=== PATIENT | female | born 1955 | race African-American/Black ===

== ENCOUNTER 2022-02-23 09:58 | Inpatient (IN) | payer OTHER ==
[2022-02-23] MEDS ORDERED: METOCLOPRAMIDE HCL INJECTION 10 MG/2 ML VIAL IVPUSH ONE (11:30)
[2022-02-23] MEDS ORDERED: ACETAMINOPHEN 1000 MG/100 ML BAG IVPB ONE (11:30)
[2022-02-23] MEDS ORDERED: METOCLOPRAMIDE HCL INJECTION 10 MG/2 ML VIAL ONE (12:33)
[2022-02-23] MEDS ORDERED: MAGNESIUM SULF 50% (8.12 MEQ/2 ML-1 GM VIAL) IVPB ONE (12:33)
[2022-02-23] MEDS ORDERED: ACETAMINOPHEN INJECTION 100 ML IVPB ONE (12:34)
[2022-02-23] MEDS ORDERED: MAGNESIUM SULFATE IN WATER 2 GM/50 ML IVPB IVPB ONE (13:36)
[2022-02-23 13:37] LABS: BASO % 0.2 % (0-2.0); EOS % 0.4 % (0-4.5); HEMATOCRIT 36.8 % (32.4-45.2); HEMOGLOBIN 11.6 GM/dL (10.7-15.3); LYMPH % 19.9 % (8-40); MCH 20.7 pg (25.7-33.7); MCHC 31.6 g/dl (32.0-36.0); MEAN CELL VOLUME 65.6 fl (80-96); MEAN PLT VOLUME 6.6 fl (7.5-11.1); NEUT % 74.5 % (42.8-82.8); PLATELET COUNT 512 10^3/uL (134-434); RBC 5.61 M/mm3 (3.60-5.2); WHITE BLOOD COUNT 7.5 K/mm3 (4.0-10.0)
[2022-02-23 13:59] LABS: ALBUMIN 3.2 g/dl (3.4-5.0); BLOOD UREA NITROGEN 43.1 mg/dL (7-18); CALCIUM 9.3 mg/dL (8.5-10.1)
[2022-02-23 14:02] LABS: CREATININE 2.7 mg/dL (0.55-1.3)
[2022-02-23 14:04] LABS: ANISOCYTOSIS 2+; BILIRUBIN,TOTAL 0.8 mg/dL (0.2-1); MACROCYTOSIS 0; TOT PROT 6.8 g/dl (6.4-8.2)
[2022-02-23 14:07] LABS: N-TERMINAL BNP 1037.6 pg/ml (5-125)
[2022-02-23] MEDS ORDERED: FUROSEMIDE 40 MG/4 ML INJECTABLE VIAL IVPUSH ONE (14:25)
[2022-02-23] MEDS ORDERED: FUROSEMIDE 40 MG/4 ML INJECTABLE VIAL ONE (14:50)
[2022-02-23] MEDS ORDERED: LOSARTAN POTASSIUM 25 MG TABLET PO SCH (15:45)
[2022-02-23] MEDS ORDERED: HEPARIN NA (PORCINE) 5,000 UNITS/ML 1ML VIAL ONE (22:26)
[2022-02-23] MEDS: HEPARIN NA (PORCINE) 5,000 UNITS/ML 1ML VIAL SQ SCH (23:29)
[2022-02-23] MEDS: ALLOPURINOL 100 MG TABLET (FP) PO SCH (23:29)
[2022-02-23] MEDS: MYCOPHENOLATE MOFETIL 500 MG TABLET PO SCH (23:29)
[2022-02-23] MEDS: ATORVASTATIN CA 40 MG TABLET (FP) PO SCH (23:55)
[2022-02-24] MEDS: HEPARIN NA (PORCINE) 5,000 UNITS/ML 1ML VIAL SQ SCH ×3 (06:06→22:04)
[2022-02-24 09:34] LABS: EPI CELLS 8 /uL (0-25.1); HYALINE CASTS 1 /uL (0-3.1); URINE APPEARANCE CLEAR; URINE BACTERIA 42 /uL (0-1359); URINE BILIRUBIN NEGATIVE (NEGATIVE); URINE COLOR YELLOW; URINE GLUCOSE (UA) NEGATIVE (NEGATIVE); URINE KETONE NEGATIVE (NEGATIVE); URINE LEUK ESTERASE NEGATIVE (NEGATIVE); URINE NITRITE NEGATIVE (NEGATIVE); URINE PROTEIN 4+ (NEGATIVE); URINE RBC 68 /uL (0-23.9); URINE UROBILINOGEN 0.2 mg/dL (0.2-1.0); URINE WBC 12 /uL (0-25.8)
[2022-02-24] MEDS ORDERED: FLU VACC QS2022-23(6MOS UP)/PF 60 MCG/0.5 ML SYRINGE IM ONE (10:00)
[2022-02-24] MEDS: LOSARTAN POTASSIUM 50 MG TABLET PO SCH (10:10)
[2022-02-24] MEDS: MYCOPHENOLATE MOFETIL 500 MG TABLET PO SCH ×2 (10:10→22:03)
[2022-02-24] MEDS: ALLOPURINOL 100 MG TABLET (FP) PO SCH ×2 (10:10→22:06)
[2022-02-24] MEDS: predniSONE 1 MG TABLET (FP) PO SCH (11:21)
[2022-02-24 11:42] VITALS: BMI 29.7
[2022-02-24] MEDS ORDERED: FUROSEMIDE 40 MG TABLET (FP) PO ONE (11:46)
[2022-02-24 14:43] LABS: HEMATOCRIT 39.5 % (32.4-45.2); HEMOGLOBIN 12.2 GM/dL (10.7-15.3); MCH 20.7 pg (25.7-33.7); MEAN CELL VOLUME 66.7 fl (80-96); MEAN PLT VOLUME 6.8 fl (7.5-11.1); PLATELET COUNT 559 10^3/uL (134-434); RBC 5.92 M/mm3 (3.60-5.2); RDW 18.3 % (11.6-15.6); WHITE BLOOD COUNT 6.4 K/mm3 (4.0-10.0)
[2022-02-24 15:12] LABS: ALBUMIN 3.3 g/dl (3.4-5.0); BLOOD UREA NITROGEN 45.2 mg/dL (7-18); CALCIUM 8.8 mg/dL (8.5-10.1); MAGNESIUM 3.1 mg/dL (1.8-2.4)
[2022-02-24 15:15] LABS: CREATININE 2.8 mg/dL (0.55-1.3); PHOSPHOROUS 5.2 mg/dL (2.5-4.9)
[2022-02-24 15:16] LABS: BILIRUBIN,TOTAL 0.6 mg/dL (0.2-1)
[2022-02-24] MEDS: ACETAMINOPHEN 325 MG TABLET (FP) PO PRN (20:08)
[2022-02-24] MEDS: ATORVASTATIN CA 40 MG TABLET (FP) PO SCH (22:06)
[2022-02-25] MEDS: HEPARIN NA (PORCINE) 5,000 UNITS/ML 1ML VIAL SQ SCH ×3 (06:24→22:00)
[2022-02-25 08:30] LABS: HEMATOCRIT 36.9 % (32.4-45.2); HEMOGLOBIN 11.6 GM/dL (10.7-15.3); MCH 20.7 pg (25.7-33.7); MCHC 31.3 g/dl (32.0-36.0); MEAN PLT VOLUME 6.7 fl (7.5-11.1); PLATELET COUNT 470 10^3/uL (134-434); RDW 18.3 % (11.6-15.6); WHITE BLOOD COUNT 6.4 K/mm3 (4.0-10.0)
[2022-02-25 09:40] LABS: CALCIUM 8.8 mg/dL (8.5-10.1)
[2022-02-25 09:41] LABS: ALBUMIN 2.8 g/dl (3.4-5.0); BLOOD UREA NITROGEN 47.1 mg/dL (7-18)
[2022-02-25 09:44] LABS: CREATININE 2.8 mg/dL (0.55-1.3)
[2022-02-25 09:46] LABS: BILIRUBIN,TOTAL 0.5 mg/dL (0.2-1); TOT PROT 5.9 g/dl (6.4-8.2)
[2022-02-25] MEDS: MYCOPHENOLATE MOFETIL 500 MG TABLET PO SCH ×2 (10:03→21:59)
[2022-02-25] MEDS: LOSARTAN POTASSIUM 50 MG TABLET PO SCH (10:03)
[2022-02-25] MEDS: predniSONE 1 MG TABLET (FP) PO SCH (10:03)
[2022-02-25] MEDS: ALLOPURINOL 100 MG TABLET (FP) PO SCH ×2 (10:03→22:00)
[2022-02-25] MEDS: ACETAMINOPHEN 325 MG TABLET (FP) PO PRN ×2 (10:41→22:05)
[2022-02-25] MEDS ORDERED: amLODIPine BESYLATE 5 MG TABLET (FP) PO ONE ×2 (12:34→13:36)
[2022-02-25] MEDS: SODIUM ZIRCONIUM CYCLOSILICATE (LOKELMA) 5 GM PACKET PO SCH (14:05)
[2022-02-25] MEDS ORDERED: LOSARTAN POTASSIUM 50 MG TABLET PO ONE (17:12)
[2022-02-25] MEDS: ATORVASTATIN CA 40 MG TABLET (FP) PO SCH (22:07)
[2022-02-26] MEDS: HEPARIN NA (PORCINE) 5,000 UNITS/ML 1ML VIAL SQ SCH ×3 (06:39→21:14)
[2022-02-26 07:34] LABS: HEMATOCRIT 34.5 % (32.4-45.2); HEMOGLOBIN 10.8 GM/dL (10.7-15.3); MCH 20.7 pg (25.7-33.7); MCHC 31.4 g/dl (32.0-36.0); MEAN PLT VOLUME 7.1 fl (7.5-11.1); PLATELET COUNT 483 10^3/uL (134-434); RBC 5.22 M/mm3 (3.60-5.2); RDW 17.9 % (11.6-15.6); WHITE BLOOD COUNT 6.1 K/mm3 (4.0-10.0)
[2022-02-26 08:10] LABS: ALBUMIN 2.6 g/dl (3.4-5.0); BLOOD UREA NITROGEN 46.3 mg/dL (7-18); CALCIUM 8.1 mg/dL (8.5-10.1)
[2022-02-26 08:13] LABS: CREATININE 2.9 mg/dL (0.55-1.3)
[2022-02-26 08:15] LABS: BILIRUBIN,TOTAL 0.4 mg/dL (0.2-1); TOT PROT 5.4 g/dl (6.4-8.2)
[2022-02-26] MEDS: ALLOPURINOL 100 MG TABLET (FP) PO SCH ×2 (09:36→21:15)
[2022-02-26] MEDS: LOSARTAN POTASSIUM 50 MG TABLET PO SCH (09:36)
[2022-02-26] MEDS: amLODIPine BESYLATE 10 MG TABLET (FP) PO SCH (09:36)
[2022-02-26] MEDS: SODIUM ZIRCONIUM CYCLOSILICATE (LOKELMA) 5 GM PACKET PO SCH (09:36)
[2022-02-26] MEDS: predniSONE 1 MG TABLET (FP) PO SCH (09:37)
[2022-02-26] MEDS: MYCOPHENOLATE MOFETIL 500 MG TABLET PO SCH ×2 (09:37→17:48)
[2022-02-26] MEDS: ACETAMINOPHEN 325 MG TABLET (FP) PO PRN (16:39)
[2022-02-26] MEDS: ATORVASTATIN CA 40 MG TABLET (FP) PO SCH (21:16)
[2022-02-26] MEDS: methylPREDNISolone NA SUCC 1000 MG/8 ML VIAL IVPB SCH (21:50)
[2022-02-26] MEDS ORDERED: SODIUM ZIRCONIUM CYCLOSILICATE (LOKELMA) 5 GM PACKET PO ONE (22:00)
[2022-02-27] MEDS: HEPARIN NA (PORCINE) 5,000 UNITS/ML 1ML VIAL SQ SCH ×3 (06:23→22:09)
[2022-02-27] MEDS: MYCOPHENOLATE MOFETIL 500 MG TABLET PO SCH ×2 (06:25→16:48)
[2022-02-27] MEDS: ACETAMINOPHEN 325 MG TABLET (FP) PO PRN (06:25)
[2022-02-27 08:28] LABS: HEMATOCRIT 37.9 % (32.4-45.2); MCH 20.6 pg (25.7-33.7); MCHC 31.6 g/dl (32.0-36.0); MEAN CELL VOLUME 65.3 fl (80-96); MEAN PLT VOLUME 6.8 fl (7.5-11.1); PLATELET COUNT 504 10^3/uL (134-434); RBC 5.81 M/mm3 (3.60-5.2); RDW 18.1 % (11.6-15.6); WHITE BLOOD COUNT 5.1 K/mm3 (4.0-10.0)
[2022-02-27 08:52] LABS: ALBUMIN 2.8 g/dl (3.4-5.0); BLOOD UREA NITROGEN 48.5 mg/dL (7-18); CALCIUM 8.7 mg/dL (8.5-10.1)
[2022-02-27 08:57] LABS: BILIRUBIN,TOTAL 0.6 mg/dL (0.2-1); TOT PROT 6.4 g/dl (6.4-8.2)
[2022-02-27] MEDS: SODIUM ZIRCONIUM CYCLOSILICATE (LOKELMA) 5 GM PACKET PO SCH (09:42)
[2022-02-27] MEDS: ALLOPURINOL 100 MG TABLET (FP) PO SCH ×2 (09:42→22:08)
[2022-02-27] MEDS: amLODIPine BESYLATE 10 MG TABLET (FP) PO SCH (09:42)
[2022-02-27] MEDS: LOSARTAN POTASSIUM 50 MG TABLET PO SCH (09:42)
[2022-02-27] MEDS: methylPREDNISolone NA SUCC 1000 MG/8 ML VIAL IVPB SCH (18:05)
[2022-02-27] MEDS: CARVEDILOL 6.25 MG TABLET (FP) PO SCH ×2 (18:24→22:08)
[2022-02-27] MEDS: ATORVASTATIN CA 40 MG TABLET (FP) PO SCH (22:10)
[2022-02-28] MEDS: MYCOPHENOLATE MOFETIL 500 MG TABLET PO SCH ×2 (06:49→17:07)
[2022-02-28 08:09] LABS: HEMATOCRIT 36.1 % (32.4-45.2); HEMOGLOBIN 11.4 GM/dL (10.7-15.3); MCH 20.4 pg (25.7-33.7); MCHC 31.5 g/dl (32.0-36.0); MEAN CELL VOLUME 64.9 fl (80-96); MEAN PLT VOLUME 6.8 fl (7.5-11.1); PLATELET COUNT 541 10^3/uL (134-434); RBC 5.56 M/mm3 (3.60-5.2); RDW 18.1 % (11.6-15.6); WHITE BLOOD COUNT 8.6 K/mm3 (4.0-10.0)
[2022-02-28 08:27] LABS: CALCIUM 8.8 mg/dL (8.5-10.1)
[2022-02-28 08:28] LABS: BLOOD UREA NITROGEN 68.8 mg/dL (7-18)
[2022-02-28 08:31] LABS: CREATININE 3.9 mg/dL (0.55-1.3)
[2022-02-28 08:33] LABS: BILIRUBIN,TOTAL 0.4 mg/dL (0.2-1); TOT PROT 6.3 g/dl (6.4-8.2)
[2022-02-28] MEDS: SODIUM ZIRCONIUM CYCLOSILICATE (LOKELMA) 5 GM PACKET PO SCH (09:46)
[2022-02-28] MEDS: ALLOPURINOL 100 MG TABLET (FP) PO SCH ×2 (09:46→21:35)
[2022-02-28] MEDS: amLODIPine BESYLATE 10 MG TABLET (FP) PO SCH (09:46)
[2022-02-28] MEDS: CARVEDILOL 6.25 MG TABLET (FP) PO SCH ×2 (09:46→21:35)
[2022-02-28] MEDS: LOSARTAN POTASSIUM 50 MG TABLET PO SCH (09:46)
[2022-02-28] MEDS: methylPREDNISolone NA SUCC 1000 MG/8 ML VIAL IVPB SCH (17:04)
[2022-02-28 18:57] LABS: CALCIUM 8.9 mg/dL (8.5-10.1)
[2022-02-28 18:58] LABS: BLOOD UREA NITROGEN 73.2 mg/dL (7-18)
[2022-02-28 19:01] LABS: CREATININE 4.1 mg/dL (0.55-1.3)
[2022-02-28] MEDS: ATORVASTATIN CA 40 MG TABLET (FP) PO SCH (21:35)
[2022-03-01] MEDS: MYCOPHENOLATE MOFETIL 500 MG TABLET PO SCH ×2 (06:07→17:39)
[2022-03-01 06:30] LABS: EPI CELLS 18 /uL (0-25.1); HYALINE CASTS 3 /uL (0-3.1); URINE APPEARANCE CLEAR; URINE BACTERIA 18 /uL (0-1359); URINE BILIRUBIN NEGATIVE (NEGATIVE); URINE COLOR YELLOW; URINE GLUCOSE (UA) NEGATIVE (NEGATIVE); URINE KETONE NEGATIVE (NEGATIVE); URINE LEUK ESTERASE NEGATIVE (NEGATIVE); URINE NITRITE NEGATIVE (NEGATIVE); URINE PROTEIN 4+ (NEGATIVE); URINE RBC 20 /uL (0-23.9); URINE UROBILINOGEN 0.2 mg/dL (0.2-1.0); URINE WBC 30 /uL (0-25.8)
[2022-03-01 08:25] LABS: HEMATOCRIT 36.1 % (32.4-45.2); HEMOGLOBIN 11.2 GM/dL (10.7-15.3); MCH 20.4 pg (25.7-33.7); MEAN CELL VOLUME 65.7 fl (80-96); PLATELET COUNT 572 10^3/uL (134-434); RBC 5.49 M/mm3 (3.60-5.2); RDW 18.3 % (11.6-15.6); WHITE BLOOD COUNT 9.4 K/mm3 (4.0-10.0)
[2022-03-01 08:28] LABS: INR 0.93 (0.83-1.09); PROTHROMBIN TIME (PATIENT) 10.7 SEC (9.7-13.0)
[2022-03-01 08:46] LABS: CALCIUM 8.8 mg/dL (8.5-10.1)
[2022-03-01 08:47] LABS: BLOOD UREA NITROGEN 82.8 mg/dL (7-18)
[2022-03-01 08:50] LABS: CREATININE 4.2 mg/dL (0.55-1.3)
[2022-03-01 08:52] LABS: BILIRUBIN,TOTAL 0.6 mg/dL (0.2-1); TOT PROT 6.4 g/dl (6.4-8.2)
[2022-03-01] MEDS: SODIUM ZIRCONIUM CYCLOSILICATE (LOKELMA) 5 GM PACKET PO SCH (10:00)
[2022-03-01] MEDS: amLODIPine BESYLATE 10 MG TABLET (FP) PO SCH (10:47)
[2022-03-01] MEDS: CARVEDILOL 6.25 MG TABLET (FP) PO SCH ×2 (10:47→21:51)
[2022-03-01] MEDS: ALLOPURINOL 100 MG TABLET (FP) PO SCH ×2 (10:47→21:51)
[2022-03-01] MEDS ORDERED: MIDAZOLAM HCL 2 MG/2 ML SINGLE DOSE VIAL ONE (13:25)
[2022-03-01] MEDS ORDERED: MIDAZOLAM HCL 2 MG/2 ML SINGLE DOSE VIAL IVPUSH ONE (13:50)
[2022-03-01] MEDS ORDERED: SODIUM CHLORIDE 500 ML IV SCH (14:45)
[2022-03-01] MEDS: ACETAMINOPHEN 325 MG TABLET (FP) PO PRN (17:39)
[2022-03-01] MEDS: ATORVASTATIN CA 40 MG TABLET (FP) PO SCH (21:51)
[2022-03-02] MEDS: MYCOPHENOLATE MOFETIL 500 MG TABLET PO SCH ×2 (06:05→18:17)
[2022-03-02] MEDS: CARVEDILOL 6.25 MG TABLET (FP) PO SCH ×2 (10:05→22:07)
[2022-03-02] MEDS: SODIUM ZIRCONIUM CYCLOSILICATE (LOKELMA) 5 GM PACKET PO SCH (10:06)
[2022-03-02] MEDS: ALLOPURINOL 100 MG TABLET (FP) PO SCH ×2 (10:06→22:08)
[2022-03-02] MEDS: amLODIPine BESYLATE 10 MG TABLET (FP) PO SCH (10:06)
[2022-03-02] MEDS: predniSONE 20 MG TABLET (UD) PO SCH (15:04)
[2022-03-02] MEDS: HEPARIN NA (PORCINE) 5,000 UNITS/ML 1ML VIAL SQ SCH ×2 (15:04→22:08)
[2022-03-02 15:10] LABS: ATYPICAL pANCA <1:20 titer (Neg:<1:20); C-ANCA <1:20 titer (Neg:<1:20)
[2022-03-02 16:21] LABS: HEMATOCRIT 34.3 % (32.4-45.2); HEMOGLOBIN 10.6 GM/dL (10.7-15.3); MCH 20.1 pg (25.7-33.7); MCHC 30.9 g/dl (32.0-36.0); MEAN CELL VOLUME 64.9 fl (80-96); MEAN PLT VOLUME 6.9 fl (7.5-11.1); PLATELET COUNT 594 10^3/uL (134-434); RBC 5.29 M/mm3 (3.60-5.2); RDW 18.2 % (11.6-15.6); WHITE BLOOD COUNT 9.9 K/mm3 (4.0-10.0)
[2022-03-02 16:32] LABS: ALBUMIN 2.5 g/dl (3.4-5.0); BLOOD UREA NITROGEN 96.3 mg/dL (7-18)
[2022-03-02 16:35] LABS: CREATININE 4.1 mg/dL (0.55-1.3)
[2022-03-02 16:37] LABS: BILIRUBIN,TOTAL 0.3 mg/dL (0.2-1); TOT PROT 5.4 g/dl (6.4-8.2)
[2022-03-02] MEDS: ATORVASTATIN CA 40 MG TABLET (FP) PO SCH (22:08)
[2022-03-03] MEDS: HEPARIN NA (PORCINE) 5,000 UNITS/ML 1ML VIAL SQ SCH ×3 (06:09→21:35)
[2022-03-03] MEDS: MYCOPHENOLATE MOFETIL 500 MG TABLET PO SCH ×2 (07:29→18:01)
[2022-03-03 07:42] LABS: HEMATOCRIT 34.7 % (32.4-45.2); HEMOGLOBIN 11.1 GM/dL (10.7-15.3); MCH 20.7 pg (25.7-33.7); MEAN CELL VOLUME 64.5 fl (80-96); MEAN PLT VOLUME 6.9 fl (7.5-11.1); PLATELET COUNT 587 10^3/uL (134-434); RBC 5.37 M/mm3 (3.60-5.2); RDW 18.3 % (11.6-15.6); WHITE BLOOD COUNT 8.7 K/mm3 (4.0-10.0)
[2022-03-03 08:10] LABS: CALCIUM 8.6 mg/dL (8.5-10.1)
[2022-03-03 08:11] LABS: ALBUMIN 2.5 g/dl (3.4-5.0); BLOOD UREA NITROGEN 101.4 mg/dL (7-18)
[2022-03-03 08:14] LABS: CREATININE 3.9 mg/dL (0.55-1.3)
[2022-03-03 08:15] LABS: BILIRUBIN,TOTAL 0.6 mg/dL (0.2-1); TOT PROT 5.5 g/dl (6.4-8.2)
[2022-03-03] MEDS: amLODIPine BESYLATE 10 MG TABLET (FP) PO SCH (09:56)
[2022-03-03] MEDS: SODIUM ZIRCONIUM CYCLOSILICATE (LOKELMA) 5 GM PACKET PO SCH (09:56)
[2022-03-03] MEDS: ALLOPURINOL 100 MG TABLET (FP) PO SCH ×2 (09:56→21:36)
[2022-03-03] MEDS: CARVEDILOL 6.25 MG TABLET (FP) PO SCH ×2 (09:56→21:37)
[2022-03-03] MEDS: predniSONE 20 MG TABLET (UD) PO SCH (09:56)
[2022-03-03] MEDS: ATORVASTATIN CA 40 MG TABLET (FP) PO SCH (21:37)
[2022-03-04] MEDS: HEPARIN NA (PORCINE) 5,000 UNITS/ML 1ML VIAL SQ SCH ×3 (05:48→21:49)
[2022-03-04] MEDS: MYCOPHENOLATE MOFETIL 500 MG TABLET PO SCH ×2 (06:11→17:38)
[2022-03-04 08:11] LABS: HEMATOCRIT 36.1 % (32.4-45.2); HEMOGLOBIN 11.2 GM/dL (10.7-15.3); MEAN CELL VOLUME 64.6 fl (80-96); MEAN PLT VOLUME 6.8 fl (7.5-11.1); PLATELET COUNT 586 10^3/uL (134-434); RBC 5.58 M/mm3 (3.60-5.2); RDW 18.2 % (11.6-15.6); WHITE BLOOD COUNT 10.1 K/mm3 (4.0-10.0)
[2022-03-04 09:49] LABS: CHLORIDE 111 mmol/L (98-107); SODIUM 143 mmol/L (136-145)
[2022-03-04 10:03] LABS: ALBUMIN 2.5 g/dl (3.4-5.0); ANION GAP 13 MMOL/L (8-16); CALCIUM 8.3 mg/dL (8.5-10.1); CO2 19 mmol/L (21-32); GLUCOSE,RANDOM 88 mg/dL (74-106); MAGNESIUM 2.2 mg/dL (1.8-2.4)
[2022-03-04 10:05] LABS: PHOSPHOROUS 6.4 mg/dL (2.5-4.9); SGPT/ALT 86 U/L (13-61)
[2022-03-04 10:06] LABS: CREATININE 3.7 mg/dL (0.55-1.3)
[2022-03-04 10:07] LABS: BILIRUBIN,TOTAL 0.5 mg/dL (0.2-1); SGOT/AST 50 U/L (15-37); TOT PROT 5.2 g/dl (6.4-8.2)
[2022-03-04 10:08] LABS: ALK PHOS 114 U/L (45-117)
[2022-03-04 10:09] LABS: BLOOD UREA NITROGEN 104.5 mg/dL (7-18)
[2022-03-04] MEDS: SODIUM ZIRCONIUM CYCLOSILICATE (LOKELMA) 5 GM PACKET PO SCH (10:39)
[2022-03-04] MEDS: amLODIPine BESYLATE 10 MG TABLET (FP) PO SCH (10:40)
[2022-03-04] MEDS: ALLOPURINOL 100 MG TABLET (FP) PO SCH ×2 (10:40→21:49)
[2022-03-04] MEDS: CARVEDILOL 6.25 MG TABLET (FP) PO SCH ×2 (10:40→21:50)
[2022-03-04] MEDS: predniSONE 20 MG TABLET (UD) PO SCH (10:40)
[2022-03-04] MEDS ORDERED: POLYETHYLENE GLYCOL (HEALTHYLAX) 3350 17 GM PACKET PO ONE (15:30)
[2022-03-04] MEDS: ATORVASTATIN CA 40 MG TABLET (FP) PO SCH (21:49)
[2022-03-05] MEDS: HEPARIN NA (PORCINE) 5,000 UNITS/ML 1ML VIAL SQ SCH (06:34)
[2022-03-05] MEDS: MYCOPHENOLATE MOFETIL 500 MG TABLET PO SCH (06:34)
[2022-03-05 07:45] LABS: HEMATOCRIT 34.7 % (32.4-45.2); HEMOGLOBIN 10.8 GM/dL (10.7-15.3); MEAN CELL VOLUME 64.5 fl (80-96); MEAN PLT VOLUME 7.3 fl (7.5-11.1); PLATELET COUNT 658 10^3/uL (134-434); RBC 5.38 M/mm3 (3.60-5.2); RDW 18.2 % (11.6-15.6); WHITE BLOOD COUNT 11.8 K/mm3 (4.0-10.0)
[2022-03-05 08:29] LABS: ALBUMIN 2.3 g/dl (3.4-5.0); BLOOD UREA NITROGEN 99.4 mg/dL (7-18); CREATININE 3.4 mg/dL (0.55-1.3)
[2022-03-05 08:30] LABS: CALCIUM 8.3 mg/dL (8.5-10.1)
[2022-03-05 08:31] LABS: BILIRUBIN,TOTAL 0.4 mg/dL (0.2-1)
[2022-03-05] MEDS ORDERED: predniSONE 10 MG TABLET (UD) PO SCH (10:00)
[2022-03-05] MEDS: SODIUM ZIRCONIUM CYCLOSILICATE (LOKELMA) 5 GM PACKET PO SCH (10:15)
[2022-03-05] MEDS: CARVEDILOL 6.25 MG TABLET (FP) PO SCH (10:15)
[2022-03-05] MEDS: amLODIPine BESYLATE 10 MG TABLET (FP) PO SCH (10:16)
[2022-03-05] MEDS: ALLOPURINOL 100 MG TABLET (FP) PO SCH (10:16)
[2022-03-05] MEDS ORDERED: ACETAMINOPHEN 325 MG TABLET (FP) PO PRN (12:11)
[2022-03-05] MEDS ORDERED: LOSARTAN POTASSIUM 25 MG TABLET PO SCH (13:15)
[2022-03-05] MEDS ORDERED: HEPARIN NA (PORCINE) 5,000 UNITS/ML 1ML VIAL SQ SCH (14:00)
[2022-03-05 14:10] VITALS: BP 135/79; PULSE 75; RESP 18; TEMP 97.3
[2022-03-05] MEDS ORDERED: MYCOPHENOLATE MOFETIL 500 MG TABLET PO SCH (17:00)
[2022-03-05] MEDS ORDERED: CARVEDILOL 6.25 MG TABLET (FP) PO SCH (22:00)
[2022-03-05] MEDS ORDERED: ATORVASTATIN CA 40 MG TABLET (FP) PO SCH (22:00)
[2022-03-05] MEDS ORDERED: ALLOPURINOL 100 MG TABLET (FP) PO SCH (22:00)
[2022-03-06] MEDS ORDERED: SODIUM ZIRCONIUM CYCLOSILICATE (LOKELMA) 5 GM PACKET PO SCH (10:00)
[2022-03-06] MEDS ORDERED: amLODIPine BESYLATE 10 MG TABLET (FP) PO SCH ×2 (10:00)
[2022-03-06] MEDS ORDERED: predniSONE 20 MG TABLET (UD) PO SCH ×2 (10:00)
== END 2022-03-05 17:36 | disposition home or self-care (01) | DRG 699 ==
LOC: JER 09:58 → UNDOADMIN 14:25 → INTOOBSV 14:25 → JERBED 14:25 → J4W 02-24 00:10 → OBSVTOIN 03-01 10:19 → J5S 03-05 11:35
PROVIDERS: ADMIT Internal Medicine; ATTEND Internal Medicine
PROC: 0TB03ZX Excision of Right Kidney, Percutaneous Approach, Diagnostic (ICD-10-PCS; principal; 2022-02-26)
DX: N04.1 Nephrotic syndrome with focal and segmental glomerular lesions (principal); I42.8 Other cardiomyopathies; N17.9 Acute kidney failure, unspecified; M32.9 Systemic lupus erythematosus, unspecified; E78.5 Hyperlipidemia, unspecified; R31.29 Other microscopic hematuria; E87.5 Hyperkalemia; R74.01 Elevation of levels of liver transaminase levels; N28.1 Cyst of kidney, acquired; E66.9 Obesity, unspecified; Z68.30 Body mass index [BMI] 30.0-30.9, adult; R80.9 Proteinuria, unspecified; R51.9 Headache, unspecified; I10 Essential (primary) hypertension; E11.22 Type 2 diabetes mellitus with diabetic chronic kidney disease
CPT/HCPCS: 36415; 50200; 71046-TC-FY; 76775-TC; 80048; 80053; 80061; 81003; 82570; 82607; 82728; 82746; 82962; 83036; 83520; 83540; 83550; 83735; 83880; 84100; 84155; 84156; 84165; 84439; 84443; 84484; 85025; 85027; 85610; 86038; 86160; 86256; 87077; 87086; 88300-TC; 88329; 93005; 93010; 93306-TC; 99285-25; C9803-CS; G0378; J1644; J7517; U0003; U0005

== ENCOUNTER 2022-03-20 09:31 | Emergency (ER) | payer OTHER ==
[2022-03-20 09:45] VITALS: BP 158/87; PULSE 66; RESP 17; TEMP 98; BMI 27.6
[2022-03-20 12:19] LABS: BASO % 0.2 % (0-2.0); HEMOGLOBIN 10.8 GM/dL (10.7-15.3); LYMPH % 9.8 % (8-40); MCHC 30.1 g/dl (32.0-36.0); MEAN CELL VOLUME 66.7 fl (80-96); MEAN PLT VOLUME 7.9 fl (7.5-11.1); MONO % 4.5 % (3.8-10.2); NEUT % 85.5 % (42.8-82.8); PLATELET COUNT 233 10^3/uL (134-434); RDW 20.1 % (11.6-15.6); WHITE BLOOD COUNT 11.5 K/mm3 (4.0-10.0)
[2022-03-20 12:21] LABS: EPI CELLS 31 /uL (0-25.1); HYALINE CASTS 1 /uL (0-3.1); PH,URINE 6.5 (5.0-8.0); URINE APPEARANCE CLEAR; URINE BACTERIA 99 /uL (0-1359); URINE BILIRUBIN NEGATIVE (NEGATIVE); URINE COLOR YELLOW; URINE GLUCOSE (UA) NEGATIVE (NEGATIVE); URINE KETONE NEGATIVE (NEGATIVE); URINE LEUK ESTERASE 1+ (NEGATIVE); URINE NITRITE NEGATIVE (NEGATIVE); URINE PROTEIN 3+ (NEGATIVE); URINE RBC 62 /uL (0-23.9); URINE UROBILINOGEN 0.2 mg/dL (0.2-1.0); URINE WBC 274 /uL (0-25.8)
[2022-03-20 12:25] LABS: ALBUMIN 2.9 g/dl (3.4-5.0); BLOOD UREA NITROGEN 50.5 mg/dL (7-18)
[2022-03-20 12:29] LABS: CREATININE 2.4 mg/dL (0.55-1.3)
[2022-03-20 12:31] LABS: BILIRUBIN,TOTAL 1.1 mg/dL (0.2-1); TOT PROT 5.6 g/dl (6.4-8.2)
[2022-03-20] MEDS ORDERED: SODIUM CHLORIDE 1,000 ML IV STA (13:05)
== END 2022-03-20 16:07 | disposition home or self-care (01) ==
LOC: JER 09:31
DX: N30.01 Acute cystitis with hematuria (principal)
CPT/HCPCS: 36415; 76775-TC; 80053; 81003; 85025; 87086; 87186; 99284-25; C9803-CS; U0003; U0005

== ENCOUNTER 2022-05-14 16:29 | Inpatient (IN) | payer OTHER ==
[2022-05-14] MEDS ORDERED: ACETAMINOPHEN 1000 MG/100 ML BAG IVPB ONE (20:14)
[2022-05-14] MEDS ORDERED: ACETAMINOPHEN INJECTION 100 ML IVPB ONE (21:21)
[2022-05-14 21:54] LABS: HEMATOCRIT 38.8 % (32.4-45.2); HEMOGLOBIN 10.9 GM/dL (10.7-15.3); MCH 21.9 pg (25.7-33.7); MCHC 28.1 g/dl (32.0-36.0); MEAN CELL VOLUME 78.1 fl (80-96); MEAN PLT VOLUME 8.9 fl (7.5-11.1); PLATELET COUNT 252 10^3/uL (134-434); RBC 4.97 M/mm3 (3.60-5.2); RDW 19.9 % (11.6-15.6); WHITE BLOOD COUNT 6.4 K/mm3 (4.0-10.0)
[2022-05-14 22:01] LABS: INR 0.88 (0.83-1.09); PROTHROMBIN TIME (PATIENT) 10.1 SEC (9.7-13.0)
[2022-05-14 22:04] LABS: ACTIVATED PTT 19.7 SECONDS (25.2-36.5)
[2022-05-14 22:09] LABS: CHLORIDE 92 mmol/L (98-107); SODIUM 131 mmol/L (136-145)
[2022-05-14 22:11] LABS: CALCIUM 8.4 mg/dL (8.5-10.1)
[2022-05-14 22:13] LABS: ALBUMIN 2.8 g/dl (3.4-5.0); ANION GAP 16 MMOL/L (8-16); BLOOD UREA NITROGEN 57.4 mg/dL (7-18); CO2 23 mmol/L (21-32); MAGNESIUM 2.2 mg/dL (1.8-2.4)
[2022-05-14 22:16] LABS: CREATININE 3.3 mg/dL (0.55-1.3); PHOSPHOROUS 3.4 mg/dL (2.5-4.9); SGOT/AST 51 U/L (15-37); TOT PROT 5.9 g/dl (6.4-8.2)
[2022-05-14 22:17] LABS: ALK PHOS 233 U/L (45-117); N-TERMINAL BNP 380.3 pg/ml (5-125)
[2022-05-14] MEDS ORDERED: SODIUM CHLORIDE 0.9% 500 ML INFUS.BAG IV ONE (22:18)
[2022-05-14 22:23] LABS: SGPT/ALT 78 U/L (13-61)
[2022-05-14 22:28] LABS: GLUCOSE,RANDOM 1151 mg/dL (74-106)
[2022-05-14 22:44] LABS: ANISOCYTOSIS 2+; MACROCYTOSIS 0; OVALOCYTE 1+; TEAR DROP CELLS 1+
[2022-05-14 23:01] LABS: EPI CELLS 3 /uL (0-25.1); HYALINE CASTS 0 /uL (0-3.1); URINE APPEARANCE CLEAR; URINE BACTERIA 6 /uL (0-1359); URINE BILIRUBIN NEGATIVE (NEGATIVE); URINE COLOR YELLOW; URINE GLUCOSE (UA) 3+ (NEGATIVE); URINE KETONE NEGATIVE (NEGATIVE); URINE LEUK ESTERASE NEGATIVE (NEGATIVE); URINE NITRITE NEGATIVE (NEGATIVE); URINE PROTEIN 2+ (NEGATIVE); URINE RBC 17 /uL (0-23.9); URINE UROBILINOGEN 0.2 mg/dL (0.2-1.0); URINE WBC 5 /uL (0-25.8)
[2022-05-14] MEDS ORDERED: INSULIN REGULAR HUMAN 100 UNITS/ML *VIAL* (FOR IVP) IVPUSH ONE (23:19)
[2022-05-14] MEDS ORDERED: LACTATED RINGERS SOLUTION 1,000 ML IV STA (23:19)
[2022-05-14] MEDS ORDERED: DEXTROSE 50%-WATER - 25 GM/50 ML VIAL IVPUSH PRN (23:19)
[2022-05-14] MEDS ORDERED: INSULIN REGULAR 100 UNITS in SODIUM CHLORIDE 99 ML IVPB SCH (23:30)
[2022-05-15 00:54] LABS: VENOUS BASE EXCESS -2.3 mmol/L (-2-2); VENOUS PH 7.351 (7.310-7.410)
[2022-05-15 00:58] LABS: LACTIC ACID 2.6 mmol/L (0.4-2.0)
[2022-05-15] MEDS ORDERED: LACTATED RINGERS SOLUTION 1,000 ML IV STA (01:18)
[2022-05-15] MEDS ORDERED: DEXTROSE 50%-WATER - 25 GM/50 ML VIAL IVPUSH PRN (03:21)
[2022-05-15] MEDS ORDERED: ONDANSETRON 4 MG/2 ML VIAL IVPUSH PRN (03:21)
[2022-05-15] MEDS ORDERED: INSULIN REGULAR HUMAN 100 UNITS/ML *VIAL* (FOR IVP) IVPUSH ONE (03:21)
[2022-05-15] MEDS ORDERED: INSULIN REGULAR 100 UNITS in SODIUM CHLORIDE 99 ML IVPB SCH (03:30)
[2022-05-15] MEDS ORDERED: ACETAMINOPHEN 325 MG TABLET (FP) PO PRN (03:30)
[2022-05-15] MEDS ORDERED: SODIUM CHLORIDE 0.45% 1,000 ML IV SCH (04:00)
[2022-05-15] MEDS ORDERED: PNEUMOC 20-VAL CONJ-DIP CRM/PF 0.5 ML SYRINGE IM ONE (04:22)
[2022-05-15] MEDS ORDERED: DEXTROSE 5%-0.45% SALINE 1,000 ML IV SCH (05:00)
[2022-05-15] MEDS: HEPARIN NA (PORCINE) 5,000 UNITS/ML 1ML VIAL SQ SCH ×3 (06:11→21:24)
[2022-05-15 06:45] LABS: CALCIUM 8.7 mg/dL (8.5-10.1); MAGNESIUM 1.8 mg/dL (1.8-2.4)
[2022-05-15 06:46] LABS: BLOOD UREA NITROGEN 49.2 mg/dL (7-18)
[2022-05-15 06:50] LABS: CREATININE 2.3 mg/dL (0.55-1.3); PHOSPHOROUS 2.4 mg/dL (2.5-4.9)
[2022-05-15 07:55] LABS: HEMATOCRIT 33.4 % (32.4-45.2); HEMOGLOBIN 10.5 GM/dL (10.7-15.3); MCH 22.2 pg (25.7-33.7); MCHC 31.5 g/dl (32.0-36.0); MEAN PLT VOLUME 7.9 fl (7.5-11.1); PLATELET COUNT 210 10^3/uL (134-434); RBC 4.75 M/mm3 (3.60-5.2); RDW 20.3 % (11.6-15.6); WHITE BLOOD COUNT 6.1 K/mm3 (4.0-10.0)
[2022-05-15 07:57] LABS: MEAN CELL VOLUME 70.4 fl (80-96)
[2022-05-15] MEDS ORDERED: CARVEDILOL 6.25 MG TABLET (FP) PO SCH (10:00)
[2022-05-15] MEDS ORDERED: predniSONE 1 MG TABLET (FP) PO SCH (10:00)
[2022-05-15 10:07] LABS: ANISOCYTOSIS 2+; MACROCYTOSIS 0; OVALOCYTE 1+; TEAR DROP CELLS 1+
[2022-05-15] MEDS: POLYETHYLENE GLYCOL (HEALTHYLAX) 3350 17 GM PACKET PO SCH ×2 (11:32→21:25)
[2022-05-15] MEDS: MUPIROCIN 2% TOPICAL OINTMENT FOR DECOLONIZATION NS SCH ×2 (11:32→21:24)
[2022-05-15] MEDS: PANTOPRAZOLE 40 MG TABLET PO SCH (11:32)
[2022-05-15] MEDS: ALLOPURINOL 100 MG TABLET (FP) PO SCH ×2 (11:33→21:23)
[2022-05-15] MEDS ORDERED: predniSONE 20 MG TABLET (UD) PO STA (16:32)
[2022-05-15] MEDS ORDERED: LOSARTAN POTASSIUM 25 MG TABLET PO ONE (16:36)
[2022-05-15] MEDS ORDERED: LACTATED RINGERS SOLUTION 1000 ML INFUS.BAG IV STA (16:38)
[2022-05-15 17:58] LABS: CALCIUM 8.6 mg/dL (8.5-10.1)
[2022-05-15 18:00] LABS: BLOOD UREA NITROGEN 36.4 mg/dL (7-18); MAGNESIUM 1.8 mg/dL (1.8-2.4)
[2022-05-15 18:02] LABS: CREATININE 1.8 mg/dL (0.55-1.3); PHOSPHOROUS 2.2 mg/dL (2.5-4.9)
[2022-05-15] MEDS: ATORVASTATIN CA 40 MG TABLET (FP) PO SCH (21:23)
[2022-05-15] MEDS: CARVEDILOL 25 MG TABLET (FP) PO SCH (21:23)
[2022-05-15] MEDS: CHLORHEXIDINE GLUCONATE 4% CLEANSER FOR DECOLONIZATION TP SCH (21:25)
[2022-05-15] MEDS: INSULIN (LEVEMIR) 100 UNITS/ML UNITS SQ SCH (21:26)
[2022-05-15] MEDS: INSULIN (NOVOLOG) ASPART 100 UNITS/ML 10ML VIAL SQ SCH ×2 (21:26→22:51)
[2022-05-16] MEDS: HEPARIN NA (PORCINE) 5,000 UNITS/ML 1ML VIAL SQ SCH ×3 (05:43→21:19)
[2022-05-16] MEDS: INSULIN (NOVOLOG) ASPART 100 UNITS/ML 10ML VIAL SQ SCH ×4 (06:34→21:18)
[2022-05-16 08:29] LABS: BLOOD UREA NITROGEN 34.6 mg/dL (7-18); CALCIUM 8.1 mg/dL (8.5-10.1); MAGNESIUM 1.7 mg/dL (1.8-2.4)
[2022-05-16 08:31] LABS: PHOSPHOROUS 2.8 mg/dL (2.5-4.9)
[2022-05-16 08:33] LABS: BILIRUBIN,TOTAL 0.6 mg/dL (0.2-1); TOT PROT 4.6 g/dl (6.4-8.2)
[2022-05-16] MEDS: ALLOPURINOL 100 MG TABLET (FP) PO SCH ×2 (09:40→21:20)
[2022-05-16] MEDS: MUPIROCIN 2% TOPICAL OINTMENT FOR DECOLONIZATION NS SCH ×2 (09:40→21:19)
[2022-05-16] MEDS: POLYETHYLENE GLYCOL (HEALTHYLAX) 3350 17 GM PACKET PO SCH ×2 (09:40→21:19)
[2022-05-16] MEDS: CALCIUM 500MG/VIT-D 200 UNITS COMBO TABLET (FP) PO SCH (09:40)
[2022-05-16] MEDS: PANTOPRAZOLE 40 MG TABLET PO SCH (09:40)
[2022-05-16] MEDS: SODIUM ZIRCONIUM CYCLOSILICATE (LOKELMA) 5 GM PACKET PO SCH (09:40)
[2022-05-16] MEDS: CARVEDILOL 25 MG TABLET (FP) PO SCH ×2 (09:40→21:19)
[2022-05-16] MEDS ORDERED: NIFEdipine E.R. 30 MG TABLET PO SCH (10:00)
[2022-05-16] MEDS ORDERED: predniSONE 20 MG TABLET (UD) PO SCH (10:00)
[2022-05-16 11:41] LABS: ALBUMIN 2.2 g/dl (3.4-5.0)
[2022-05-16] MEDS: LOSARTAN POTASSIUM 50 MG TABLET PO SCH (16:55)
[2022-05-16] MEDS: INSULIN (LEVEMIR) 100 UNITS/ML UNITS SQ SCH (21:17)
[2022-05-16] MEDS: CHLORHEXIDINE GLUCONATE 4% CLEANSER FOR DECOLONIZATION TP SCH (21:19)
[2022-05-16] MEDS: ATORVASTATIN CA 40 MG TABLET (FP) PO SCH (21:20)
[2022-05-16 23:52] LABS: HEMATOCRIT 30.2 % (32.4-45.2); HEMOGLOBIN 9.4 GM/dL (10.7-15.3); MCH 22.2 pg (25.7-33.7); MCHC 31.3 g/dl (32.0-36.0); MEAN CELL VOLUME 71.2 fl (80-96); MEAN PLT VOLUME 7.7 fl (7.5-11.1); PLATELET COUNT 237 10^3/uL (134-434); RBC 4.25 M/mm3 (3.60-5.2); RDW 20.2 % (11.6-15.6); WHITE BLOOD COUNT 7.9 K/mm3 (4.0-10.0)
[2022-05-17] MEDS: PANTOPRAZOLE SODIUM 80 MG in SODIUM CHLORIDE 100 ML IVPB SCH ×3 (00:19→20:00)
[2022-05-17] MEDS: HEPARIN NA (PORCINE) 5,000 UNITS/ML 1ML VIAL SQ SCH (05:32)
[2022-05-17] MEDS ORDERED: NIFEdipine E.R. 30 MG TABLET PO SCH (06:10)
[2022-05-17] MEDS: INSULIN (NOVOLOG) ASPART 100 UNITS/ML 10ML VIAL SQ SCH ×4 (06:41→21:37)
[2022-05-17] MEDS ORDERED: LACTATED RINGERS SOLUTION 1,000 ML/1,000 ML INFUS.BAG IV STA ×2 (07:47→10:32)
[2022-05-17 07:54] LABS: HEMATOCRIT 25.8 % (32.4-45.2); MCH 22.1 pg (25.7-33.7); MCHC 30.9 g/dl (32.0-36.0); MEAN CELL VOLUME 71.6 fl (80-96); MEAN PLT VOLUME 8.4 fl (7.5-11.1); PLATELET COUNT 231 10^3/uL (134-434); RBC 3.61 M/mm3 (3.60-5.2); RDW 19.8 % (11.6-15.6); WHITE BLOOD COUNT 7.4 K/mm3 (4.0-10.0)
[2022-05-17 08:23] LABS: CALCIUM 7.6 mg/dL (8.5-10.1)
[2022-05-17 08:24] LABS: BLOOD UREA NITROGEN 36.4 mg/dL (7-18); MAGNESIUM 1.7 mg/dL (1.8-2.4)
[2022-05-17 08:27] LABS: CREATININE 2.2 mg/dL (0.55-1.3)
[2022-05-17] MEDS ORDERED: MAGNESIUM SULF 50% (8.12 MEQ/2 ML-1 GM VIAL) IVPB ONE (08:30)
[2022-05-17] MEDS ORDERED: predniSONE 20 MG TABLET (UD) PO SCH (10:00)
[2022-05-17] MEDS: CARVEDILOL 25 MG TABLET (FP) PO SCH ×2 (10:37→21:37)
[2022-05-17] MEDS: LOSARTAN POTASSIUM 50 MG TABLET PO SCH (10:37)
[2022-05-17] MEDS: POLYETHYLENE GLYCOL (HEALTHYLAX) 3350 17 GM PACKET PO SCH ×2 (10:38→21:37)
[2022-05-17] MEDS: ALLOPURINOL 100 MG TABLET (FP) PO SCH ×2 (10:38→21:37)
[2022-05-17] MEDS: CALCIUM 500MG/VIT-D 200 UNITS COMBO TABLET (FP) PO SCH (10:38)
[2022-05-17] MEDS: SODIUM ZIRCONIUM CYCLOSILICATE (LOKELMA) 5 GM PACKET PO SCH (10:38)
[2022-05-17] MEDS: PANTOPRAZOLE 40 MG TABLET PO SCH (10:38)
[2022-05-17 11:50] LABS: HEMATOCRIT 22.2 % (32.4-45.2); MCH 22.1 pg (25.7-33.7); MCHC 30.4 g/dl (32.0-36.0); MEAN CELL VOLUME 72.5 fl (80-96); MEAN PLT VOLUME 7.8 fl (7.5-11.1); PLATELET COUNT 194 10^3/uL (134-434); RBC 3.06 M/mm3 (3.60-5.2); RDW 19.9 % (11.6-15.6); WHITE BLOOD COUNT 7.7 K/mm3 (4.0-10.0)
[2022-05-17] MEDS: MUPIROCIN 2% TOPICAL OINTMENT FOR DECOLONIZATION NS SCH ×2 (11:53→21:37)
[2022-05-17 11:56] LABS: HEMOGLOBIN 6.8 GM/dL (10.7-15.3)
[2022-05-17 12:44] LABS: ANISOCYTOSIS 2+; MACROCYTOSIS 0; TEAR DROP CELLS 1+
[2022-05-17] MEDS ORDERED: DEXTROSE 50%-WATER - 25 GM/50 ML VIAL IVPUSH PRN (17:33)
[2022-05-17] MEDS: CHLORHEXIDINE GLUCONATE 4% CLEANSER FOR DECOLONIZATION TP SCH (21:37)
[2022-05-17] MEDS: ATORVASTATIN CA 40 MG TABLET (FP) PO SCH (21:37)
[2022-05-17] MEDS: INSULIN (LEVEMIR) 100 UNITS/ML UNITS SQ SCH (21:38)
[2022-05-18] MEDS ORDERED: DEXTROSE 50%-WATER 25 GM/50 ML DISP.SYRIN ONE (06:39)
[2022-05-18] MEDS: INSULIN (NOVOLOG) ASPART 100 UNITS/ML 10ML VIAL SQ SCH ×4 (07:24→23:50)
[2022-05-18 07:39] LABS: HEMATOCRIT 29.2 % (32.4-45.2); HEMOGLOBIN 9.7 GM/dL (10.7-15.3); MCH 25.1 pg (25.7-33.7); MCHC 33.1 g/dl (32.0-36.0); MEAN PLT VOLUME 7.4 fl (7.5-11.1); PLATELET COUNT 176 10^3/uL (134-434); RBC 3.84 M/mm3 (3.60-5.2); RDW 20.2 % (11.6-15.6); WHITE BLOOD COUNT 8.5 K/mm3 (4.0-10.0)
[2022-05-18 07:43] LABS: CALCIUM 7.4 mg/dL (8.5-10.1)
[2022-05-18 07:44] LABS: BLOOD UREA NITROGEN 35.9 mg/dL (7-18)
[2022-05-18 07:45] LABS: TOT PROT 3.6 g/dl (6.4-8.2)
[2022-05-18 07:50] LABS: ALBUMIN 1.7 g/dl (3.4-5.0)
[2022-05-18 09:12] LABS: ANISOCYTOSIS 2+; MACROCYTOSIS 0; OVALOCYTE 1+; TEAR DROP CELLS 1+
[2022-05-18] MEDS ORDERED: ACETAMINOPHEN 1000 MG/100 ML BAG IVPB ONE (09:43)
[2022-05-18] MEDS: PANTOPRAZOLE SODIUM 80 MG in SODIUM CHLORIDE 100 ML IVPB SCH ×2 (09:44→17:09)
[2022-05-18] MEDS: MUPIROCIN 2% TOPICAL OINTMENT FOR DECOLONIZATION NS SCH (09:45)
[2022-05-18] MEDS: SODIUM ZIRCONIUM CYCLOSILICATE (LOKELMA) 5 GM PACKET PO SCH (09:45)
[2022-05-18] MEDS: POLYETHYLENE GLYCOL (HEALTHYLAX) 3350 17 GM PACKET PO SCH ×2 (09:45→23:02)
[2022-05-18] MEDS: CALCIUM 500MG/VIT-D 200 UNITS COMBO TABLET (FP) PO SCH (09:45)
[2022-05-18] MEDS: CARVEDILOL 25 MG TABLET (FP) PO SCH ×2 (09:45→23:01)
[2022-05-18] MEDS: LOSARTAN POTASSIUM 50 MG TABLET PO SCH (09:45)
[2022-05-18] MEDS: PANTOPRAZOLE 40 MG TABLET PO SCH (09:46)
[2022-05-18] MEDS: methylPREDNISolone NA SUCC 40 MG/1 ML VIAL IVPUSH SCH (09:46)
[2022-05-18] MEDS: ALLOPURINOL 100 MG TABLET (FP) PO SCH ×2 (09:46→23:02)
[2022-05-18] MEDS: DEXTROSE 5%-0.45% SALINE 1,000 ML IV SCH (13:45)
[2022-05-18 14:34] LABS: MAGNESIUM 1.8 mg/dL (1.8-2.4)
[2022-05-18 14:38] LABS: PHOSPHOROUS 3.1 mg/dL (2.5-4.9)
[2022-05-18] MEDS ORDERED: TETRACAINE/BENZOCAINE/BUTAMBEN 20 GM SPR TP ONE (15:49)
[2022-05-18] MEDS ORDERED: BISACODYL 5 MG TABLET.DR (FP) PO ONE (16:37)
[2022-05-18] MEDS ORDERED: PEG 3350/NA SULF BICARB CL/KCL 4000 ML SOLN.RECON PO ONE (17:00)
[2022-05-18] MEDS: ATORVASTATIN CA 40 MG TABLET (FP) PO SCH (23:02)
[2022-05-18] MEDS: INSULIN (LEVEMIR) 100 UNITS/ML UNITS SQ SCH (23:30)
[2022-05-19] MEDS: MUPIROCIN 2% TOPICAL OINTMENT FOR DECOLONIZATION NS SCH ×3 (05:46→22:03)
[2022-05-19] MEDS: CHLORHEXIDINE GLUCONATE 4% CLEANSER FOR DECOLONIZATION TP SCH ×2 (05:47→22:04)
[2022-05-19 07:22] LABS: HEMATOCRIT 28.7 % (32.4-45.2); HEMOGLOBIN 9.2 GM/dL (10.7-15.3); MCH 24.6 pg (25.7-33.7); MCHC 32.1 g/dl (32.0-36.0); MEAN CELL VOLUME 76.5 fl (80-96); MEAN PLT VOLUME 7.9 fl (7.5-11.1); PLATELET COUNT 182 10^3/uL (134-434); RBC 3.75 M/mm3 (3.60-5.2); RDW 20.9 % (11.6-15.6); WHITE BLOOD COUNT 5.9 K/mm3 (4.0-10.0)
[2022-05-19 07:50] LABS: ALBUMIN 1.6 g/dl (3.4-5.0); CALCIUM 7.3 mg/dL (8.5-10.1)
[2022-05-19 07:51] LABS: BLOOD UREA NITROGEN 23.2 mg/dL (7-18)
[2022-05-19 07:53] LABS: CREATININE 1.7 mg/dL (0.55-1.3)
[2022-05-19 07:55] LABS: BILIRUBIN,TOTAL 1.2 mg/dL (0.2-1); TOT PROT 3.7 g/dl (6.4-8.2)
[2022-05-19] MEDS: INSULIN (NOVOLOG) ASPART 100 UNITS/ML 10ML VIAL SQ SCH ×4 (08:03→22:10)
[2022-05-19] MEDS: LOSARTAN POTASSIUM 50 MG TABLET PO SCH (11:24)
[2022-05-19] MEDS: CARVEDILOL 25 MG TABLET (FP) PO SCH ×2 (11:24→22:04)
[2022-05-19] MEDS: POLYETHYLENE GLYCOL (HEALTHYLAX) 3350 17 GM PACKET PO SCH ×2 (11:24→22:04)
[2022-05-19] MEDS: methylPREDNISolone NA SUCC 40 MG/1 ML VIAL IVPUSH SCH (11:25)
[2022-05-19] MEDS: ALLOPURINOL 100 MG TABLET (FP) PO SCH ×2 (11:25→22:04)
[2022-05-19] MEDS: PANTOPRAZOLE 40 MG TABLET PO SCH (11:25)
[2022-05-19] MEDS: CALCIUM 500MG/VIT-D 200 UNITS COMBO TABLET (FP) PO SCH (11:25)
[2022-05-19 14:53] LABS: MAGNESIUM 1.6 mg/dL (1.8-2.4)
[2022-05-19 14:57] LABS: PHOSPHOROUS 2.3 mg/dL (2.5-4.9)
[2022-05-19] MEDS ORDERED: POTASSIUM PHOSPHATE 15 MM in DEXTROSE 5%-WATER - 250 ML IVPB ONE (15:27)
[2022-05-19] MEDS ORDERED: MAGNESIUM SULF 50% (8.12 MEQ/2 ML-1 GM VIAL) IVPB ONE (15:27)
[2022-05-19] MEDS: DEXTROSE 5%-0.45% SALINE 1,000 ML IV SCH (17:27)
[2022-05-19] MEDS: ATORVASTATIN CA 40 MG TABLET (FP) PO SCH (22:04)
[2022-05-19] MEDS: INSULIN (LEVEMIR) 100 UNITS/ML UNITS SQ SCH (22:09)
[2022-05-20] MEDS ORDERED: SODIUM CHLORIDE 250 ML IV STA (01:06)
[2022-05-20] MEDS: INSULIN (NOVOLOG) ASPART 100 UNITS/ML 10ML VIAL SQ SCH ×4 (06:25→21:39)
[2022-05-20 06:35] LABS: HEMATOCRIT 24.2 % (32.4-45.2); HEMOGLOBIN 7.8 GM/dL (10.7-15.3); MCH 24.6 pg (25.7-33.7); MCHC 32.3 g/dl (32.0-36.0); MEAN CELL VOLUME 76.4 fl (80-96); MEAN PLT VOLUME 7.5 fl (7.5-11.1); PLATELET COUNT 147 10^3/uL (134-434); RBC 3.17 M/mm3 (3.60-5.2); RDW 21.2 % (11.6-15.6)
[2022-05-20 06:57] LABS: CHLORIDE 111 mmol/L (98-107); SODIUM 144 mmol/L (136-145)
[2022-05-20 07:03] LABS: ALBUMIN 1.4 g/dl (3.4-5.0); ANION GAP 6 MMOL/L (8-16); BLOOD UREA NITROGEN 17.1 mg/dL (7-18); CO2 27 mmol/L (21-32); GLUCOSE,RANDOM 67 mg/dL (74-106)
[2022-05-20 07:06] LABS: CREATININE 1.8 mg/dL (0.55-1.3); SGOT/AST 27 U/L (15-37); SGPT/ALT 26 U/L (13-61)
[2022-05-20 07:07] LABS: TOT PROT 3.2 g/dl (6.4-8.2)
[2022-05-20 07:09] LABS: ALK PHOS 73 U/L (45-117)
[2022-05-20 07:16] LABS: CALCIUM 6.9 mg/dL (8.5-10.1)
[2022-05-20] MEDS ORDERED: ONDANSETRON 4 MG/2 ML VIAL IVPUSH PRN (09:07)
[2022-05-20] MEDS ORDERED: ACETAMINOPHEN 325 MG TABLET (FP) PO PRN (09:07)
[2022-05-20] MEDS ORDERED: PANTOPRAZOLE 40 MG TABLET PO SCH (10:00)
[2022-05-20] MEDS ORDERED: POLYETHYLENE GLYCOL (HEALTHYLAX) 3350 17 GM PACKET PO SCH (10:00)
[2022-05-20] MEDS ORDERED: CARVEDILOL 25 MG TABLET (FP) PO SCH (10:00)
[2022-05-20] MEDS: CALCIUM 500MG/VIT-D 200 UNITS COMBO TABLET (FP) PO SCH (10:09)
[2022-05-20] MEDS: ALLOPURINOL 100 MG TABLET (FP) PO SCH ×2 (10:09→21:40)
[2022-05-20] MEDS: LOSARTAN POTASSIUM 50 MG TABLET PO SCH (10:09)
[2022-05-20] MEDS: methylPREDNISolone NA SUCC 40 MG/1 ML VIAL IVPUSH SCH (10:09)
[2022-05-20] MEDS: MUPIROCIN 2% TOPICAL OINTMENT FOR DECOLONIZATION NS SCH ×2 (10:28→21:39)
[2022-05-20 14:38] LABS: MAGNESIUM 1.3 mg/dL (1.8-2.4)
[2022-05-20 14:41] LABS: PHOSPHOROUS 3.4 mg/dL (2.5-4.9)
[2022-05-20] MEDS ORDERED: MAGNESIUM 1GM/D5W 100ML - 100 ML IVPB IVPB ONE (17:25)
[2022-05-20] MEDS: CARVEDILOL 25 MG TABLET (FP) PO SCH (21:39)
[2022-05-20] MEDS: ATORVASTATIN CA 40 MG TABLET (FP) PO SCH (21:39)
[2022-05-20] MEDS: CHLORHEXIDINE GLUCONATE 4% CLEANSER FOR DECOLONIZATION TP SCH (21:40)
[2022-05-20] MEDS ORDERED: INSULIN (LEVEMIR) 100 UNITS/ML UNITS SQ SCH (22:00)
[2022-05-21] MEDS: INSULIN (NOVOLOG) ASPART 100 UNITS/ML 10ML VIAL SQ SCH ×4 (06:04→21:16)
[2022-05-21 07:48] LABS: HEMATOCRIT 24.2 % (32.4-45.2); HEMOGLOBIN 7.9 GM/dL (10.7-15.3); MCH 24.7 pg (25.7-33.7); MCHC 32.6 g/dl (32.0-36.0); MEAN CELL VOLUME 75.7 fl (80-96); MEAN PLT VOLUME 7.3 fl (7.5-11.1); PLATELET COUNT 166 10^3/uL (134-434); RBC 3.19 M/mm3 (3.60-5.2); RDW 20.9 % (11.6-15.6); WHITE BLOOD COUNT 4.1 K/mm3 (4.0-10.0)
[2022-05-21 08:13] LABS: ALBUMIN 1.6 g/dl (3.4-5.0)
[2022-05-21 08:14] LABS: CALCIUM 7.7 mg/dL (8.5-10.1)
[2022-05-21 08:17] LABS: BILIRUBIN,TOTAL 1.2 mg/dL (0.2-1); TOT PROT 3.9 g/dl (6.4-8.2)
[2022-05-21] MEDS: CARVEDILOL 25 MG TABLET (FP) PO SCH ×2 (09:18→21:15)
[2022-05-21] MEDS: ALLOPURINOL 100 MG TABLET (FP) PO SCH ×2 (09:18→21:15)
[2022-05-21] MEDS: LOSARTAN POTASSIUM 50 MG TABLET PO SCH (09:18)
[2022-05-21] MEDS: CALCIUM 500MG/VIT-D 200 UNITS COMBO TABLET (FP) PO SCH (09:19)
[2022-05-21] MEDS: methylPREDNISolone NA SUCC 40 MG/1 ML VIAL IVPUSH SCH (09:19)
[2022-05-21] MEDS: MUPIROCIN 2% TOPICAL OINTMENT FOR DECOLONIZATION NS SCH ×2 (09:55→21:16)
[2022-05-21 15:31] VITALS: BMI 32.5
[2022-05-21] MEDS: ATORVASTATIN CA 40 MG TABLET (FP) PO SCH (21:15)
[2022-05-21] MEDS: CHLORHEXIDINE GLUCONATE 4% CLEANSER FOR DECOLONIZATION TP SCH (21:16)
[2022-05-22 06:31] VITALS: RESP 20
[2022-05-22] MEDS: INSULIN (NOVOLOG) ASPART 100 UNITS/ML 10ML VIAL SQ SCH ×2 (06:32→11:35)
[2022-05-22 07:22] LABS: HEMATOCRIT 25.9 % (32.4-45.2); HEMOGLOBIN 8.3 GM/dL (10.7-15.3); MCH 24.5 pg (25.7-33.7); MCHC 31.9 g/dl (32.0-36.0); MEAN CELL VOLUME 76.8 fl (80-96); MEAN PLT VOLUME 7.8 fl (7.5-11.1); PLATELET COUNT 220 10^3/uL (134-434); RBC 3.38 M/mm3 (3.60-5.2); RDW 21.1 % (11.6-15.6); WHITE BLOOD COUNT 5.9 K/mm3 (4.0-10.0)
[2022-05-22 07:46] LABS: BLOOD UREA NITROGEN 30.2 mg/dL (7-18); CALCIUM 8.2 mg/dL (8.5-10.1); MAGNESIUM 1.8 mg/dL (1.8-2.4)
[2022-05-22 07:47] LABS: ALBUMIN 1.8 g/dl (3.4-5.0)
[2022-05-22 07:49] LABS: PHOSPHOROUS 2.6 mg/dL (2.5-4.9)
[2022-05-22 07:50] LABS: CREATININE 2.2 mg/dL (0.55-1.3)
[2022-05-22 07:51] LABS: BILIRUBIN,TOTAL 0.4 mg/dL (0.2-1); TOT PROT 4.4 g/dl (6.4-8.2)
[2022-05-22] MEDS ORDERED: AMINO ACIDS/PROTEIN HYDROLYS 30 ML LIQUID.PKT PO SCH (08:00)
[2022-05-22] MEDS: MUPIROCIN 2% TOPICAL OINTMENT FOR DECOLONIZATION NS SCH (09:41)
[2022-05-22] MEDS: CARVEDILOL 25 MG TABLET (FP) PO SCH (09:43)
[2022-05-22] MEDS: CALCIUM 500MG/VIT-D 200 UNITS COMBO TABLET (FP) PO SCH (09:43)
[2022-05-22] MEDS: ALLOPURINOL 100 MG TABLET (FP) PO SCH (09:44)
[2022-05-22] MEDS: LOSARTAN POTASSIUM 50 MG TABLET PO SCH (09:44)
[2022-05-22 09:50] VITALS: TEMP 98.2
[2022-05-22] MEDS ORDERED: MULTIVITAMINS (DAILY MVI) TABLET (FP) PO SCH (10:00)
[2022-05-22] MEDS ORDERED: ASCORBIC ACID 500 MG TABLET (FP) PO SCH (10:00)
[2022-05-22] MEDS ORDERED: predniSONE 20 MG TABLET (UD) PO SCH (10:00)
[2022-05-22 14:21] VITALS: BP 132/70; PULSE 88
[2022-05-22] MEDS ORDERED: INSULIN SLIDING SCALE (NOVOLOG) 1 VIAL SQ SCH (15:09)
[2022-05-23] MEDS ORDERED: sitaGLIPtin PHOSPHATE 50 MG TABLET PO SCH (07:00)
== END 2022-05-22 16:15 | disposition home or self-care (01) | DRG 637 ==
LOC: JER 16:29 → JERBED 20:28 → JICU 05-15 03:50 → J2W 05-19 19:46
PROVIDERS: ADMIT Internal Medicine Pulmonary Disease; ATTEND Internal Medicine
PROC: 30233N1 Transfusion of Nonautologous Red Blood Cells into Peripheral Vein, Percutaneous Approach (ICD-10-PCS; 2022-05-17)
PROC: 0DB98ZZ Excision of Duodenum, Via Natural or Artificial Opening Endoscopic (ICD-10-PCS; principal; 2022-05-18 14:15)
PROC: 0DJD8ZZ Inspection of Lower Intestinal Tract, Via Natural or Artificial Opening Endoscopic (ICD-10-PCS; 2022-05-19)
DX: E11.00 Type 2 diabetes mellitus with hyperosmolarity without nonketotic hyperglycemic-hyperosmolar coma (NKHHC) (principal); K57.31 Diverticulosis of large intestine without perforation or abscess with bleeding; N17.9 Acute kidney failure, unspecified; D62 Acute posthemorrhagic anemia; N05.1 Unspecified nephritic syndrome with focal and segmental glomerular lesions; M32.9 Systemic lupus erythematosus, unspecified; K64.9 Unspecified hemorrhoids; E78.5 Hyperlipidemia, unspecified; K44.9 Diaphragmatic hernia without obstruction or gangrene
CPT/HCPCS: 0241U-QW; 36415; 36430; 70450-TC; 71045-TC-FY; 72125-TC; 72170-TC-FY; 74176-TC; 80048; 80053; 81003; 82010; 82550; 82803; 82962; 83036; 83605; 83690; 83735; 83880; 83930; 84100; 84484; 85025; 85027; 85610; 85730; 86850; 86900; 86901; 86922; 88305-TC; 93005; 93010; 99291; J1644; P9058

== ENCOUNTER 2022-06-14 16:41 | Inpatient (IN) | payer OTHER ==
[2022-06-14 19:01] LABS: HEMATOCRIT 29.9 % (32.4-45.2); HEMOGLOBIN 9.4 GM/dL (10.7-15.3); MCH 24.3 pg (25.7-33.7); MCHC 31.4 g/dl (32.0-36.0); MEAN CELL VOLUME 77.4 fl (80-96); MEAN PLT VOLUME 7.8 fl (7.5-11.1); PLATELET COUNT 248 10^3/uL (134-434); RBC 3.87 M/mm3 (3.60-5.2); RDW 20.4 % (11.6-15.6); WHITE BLOOD COUNT 7.6 K/mm3 (4.0-10.0)
[2022-06-14 19:24] LABS: CALCIUM 9.1 mg/dL (8.5-10.1)
[2022-06-14 19:25] LABS: ALBUMIN 3.1 g/dl (3.4-5.0); BLOOD UREA NITROGEN 67.5 mg/dL (7-18); MAGNESIUM 1.9 mg/dL (1.8-2.4)
[2022-06-14 19:27] LABS: CREATININE 2.5 mg/dL (0.55-1.3)
[2022-06-14 19:29] LABS: BILIRUBIN,TOTAL 1.2 mg/dL (0.2-1); TOT PROT 5.9 g/dl (6.4-8.2)
[2022-06-14 20:50] LABS: ANISOCYTOSIS 2+; MACROCYTOSIS 0
[2022-06-14 21:14] LABS: EPI CELLS 11 /uL (0-25.1); HYALINE CASTS 0 /uL (0-3.1); PH,URINE 5.5 (5.0-8.0); URINE APPEARANCE CLEAR; URINE BACTERIA 67 /uL (0-1359); URINE BILIRUBIN NEGATIVE (NEGATIVE); URINE COLOR YELLOW; URINE GLUCOSE (UA) NEGATIVE (NEGATIVE); URINE KETONE NEGATIVE (NEGATIVE); URINE LEUK ESTERASE TRACE (NEGATIVE); URINE NITRITE NEGATIVE (NEGATIVE); URINE PROTEIN 3+ (NEGATIVE); URINE RBC 10 /uL (0-23.9); URINE UROBILINOGEN 0.2 mg/dL (0.2-1.0); URINE WBC 21 /uL (0-25.8)
[2022-06-14 22:43] LABS: URINE CRYSTALS MODERATE /hpf
[2022-06-14] MEDS ORDERED: SODIUM CHLORIDE 0.9% 500 ML INFUS.BAG IV ONE (23:04)
[2022-06-14] MEDS ORDERED: LACTATED RINGERS SOLUTION 1000 ML INFUS.BAG IV ONE (23:05)
[2022-06-14] MEDS ORDERED: PANTOPRAZOLE SODIUM 40 MG VIAL IVPUSH ONE (23:05)
[2022-06-14 23:44] LABS: HEMOGLOBIN 9.2 GM/dL (10.7-15.3); MCH 24.1 pg (25.7-33.7); MCHC 30.5 g/dl (32.0-36.0); MEAN CELL VOLUME 78.8 fl (80-96); MEAN PLT VOLUME 7.4 fl (7.5-11.1); PLATELET COUNT 222 10^3/uL (134-434); RBC 3.81 M/mm3 (3.60-5.2); WHITE BLOOD COUNT 7.3 K/mm3 (4.0-10.0)
[2022-06-14 23:49] LABS: INR 0.93 (0.83-1.09); PROTHROMBIN TIME (PATIENT) 10.7 SEC (9.7-13.0)
[2022-06-14 23:52] LABS: ACTIVATED PTT 18.9 SECONDS (25.2-36.5)
[2022-06-15] MEDS ORDERED: PANTOPRAZOLE SODIUM 40 MG/100 ML BAG IVPB ONE ×2 (00:47→11:03)
[2022-06-15 04:36] LABS: HIV INTERPRETATION NEGATIVE (NEGATIVE)
[2022-06-15] MEDS ORDERED: SODIUM CHLORIDE 1,000 ML IV SCH (05:00)
[2022-06-15 05:33] LABS: ANISOCYTOSIS 3+; MACROCYTOSIS 0; OVALOCYTE 1+; TEAR DROP CELLS 2+
[2022-06-15] MEDS ORDERED: PATIENT'S OWN MEDICATION (NON-FORMULARY) (Sodium Zirconium Cyclosilicate 10 GM Packet) PO SCH (06:00)
[2022-06-15 08:09] LABS: HEMOGLOBIN 9.3 GM/dL (10.7-15.3); MCH 24.2 pg (25.7-33.7); MCHC 30.9 g/dl (32.0-36.0); MEAN CELL VOLUME 78.3 fl (80-96); PLATELET COUNT 246 10^3/uL (134-434); RBC 3.84 M/mm3 (3.60-5.2); RDW 20.7 % (11.6-15.6); WHITE BLOOD COUNT 6.4 K/mm3 (4.0-10.0)
[2022-06-15 08:34] LABS: BLOOD UREA NITROGEN 61.9 mg/dL (7-18)
[2022-06-15 08:35] LABS: CALCIUM 8.8 mg/dL (8.5-10.1)
[2022-06-15 08:37] LABS: CREATININE 2.3 mg/dL (0.55-1.3)
[2022-06-15 08:38] LABS: TOT PROT 5.5 g/dl (6.4-8.2)
[2022-06-15 09:19] LABS: ANISOCYTOSIS 3+; MACROCYTOSIS 0; OVALOCYTE 1+; TEAR DROP CELLS 1+
[2022-06-15] MEDS: PANTOPRAZOLE SODIUM 40 MG VIAL IVPUSH SCH ×2 (11:09→21:51)
[2022-06-15] MEDS: ALLOPURINOL 100 MG TABLET (FP) PO SCH (11:09)
[2022-06-15] MEDS ORDERED: PEG 3350/NA SULF BICARB CL/KCL 4000 ML SOLN.RECON PO ONE (13:06)
[2022-06-15 15:31] LABS: HEMOGLOBIN 9.2 GM/dL (10.7-15.3); MCH 23.9 pg (25.7-33.7); MCHC 30.6 g/dl (32.0-36.0); MEAN CELL VOLUME 78.3 fl (80-96); MEAN PLT VOLUME 7.6 fl (7.5-11.1); PLATELET COUNT 208 10^3/uL (134-434); RBC 3.83 M/mm3 (3.60-5.2); RDW 20.2 % (11.6-15.6); WHITE BLOOD COUNT 6.1 K/mm3 (4.0-10.0)
[2022-06-15 15:59] LABS: ANISOCYTOSIS 1+; MACROCYTOSIS 0; TEAR DROP CELLS 1+
[2022-06-15] MEDS ORDERED: BISACODYL 5 MG TABLET.DR (FP) PO ONE (18:00)
[2022-06-15 18:46] VITALS: BMI 27.6
[2022-06-15] MEDS: ATORVASTATIN CA 40 MG TABLET (FP) PO SCH (21:51)
[2022-06-16] MEDS: PANTOPRAZOLE SODIUM 40 MG VIAL IVPUSH SCH ×3 (00:06→21:12)
[2022-06-16] MEDS: DEXTROSE 50%-WATER - 25 GM/50 ML VIAL IVPUSH ONE ×2 (01:57→02:08)
[2022-06-16] MEDS: DEXTROSE 5%-NORMAL SALINE 1,000 ML IV SCH (02:00)
[2022-06-16] MEDS ORDERED: DEXTROSE 50%-WATER 25 GM/50 ML DISP.SYRIN IVPUSH ONE ×2 (02:00→04:11)
[2022-06-16] MEDS ORDERED: predniSONE 10 MG TABLET (UD) PO SCH (10:00)
[2022-06-16] MEDS: ALLOPURINOL 100 MG TABLET (FP) PO SCH (11:40)
[2022-06-16] MEDS ORDERED: PIPERACILLIN/TAZOB 2.25 GM 2.25 GM in DEXTROSE 5%-WATER - 50 ML IVPB SCH ×2 (12:30→22:00)
[2022-06-16 12:46] LABS: HEMATOCRIT 30.5 % (32.4-45.2); HEMOGLOBIN 9.5 GM/dL (10.7-15.3); MCH 24.5 pg (25.7-33.7); MCHC 31.2 g/dl (32.0-36.0); MEAN CELL VOLUME 78.4 fl (80-96); MEAN PLT VOLUME 7.7 fl (7.5-11.1); PLATELET COUNT 244 10^3/uL (134-434); RBC 3.89 M/mm3 (3.60-5.2); RDW 20.3 % (11.6-15.6); WHITE BLOOD COUNT 5.3 K/mm3 (4.0-10.0)
[2022-06-16] MEDS ORDERED: predniSONE 5 MG TABLET (UD) PO SCH (12:49)
[2022-06-16 12:58] LABS: CALCIUM 8.3 mg/dL (8.5-10.1)
[2022-06-16 12:59] LABS: ALBUMIN 2.6 g/dl (3.4-5.0); MAGNESIUM 1.5 mg/dL (1.8-2.4)
[2022-06-16 13:02] LABS: CREATININE 1.6 mg/dL (0.55-1.3)
[2022-06-16 13:04] LABS: BILIRUBIN,TOTAL 1.5 mg/dL (0.2-1)
[2022-06-16 13:07] LABS: BLOOD UREA NITROGEN 35.2 mg/dL (7-18)
[2022-06-16 13:10] LABS: ANISOCYTOSIS 2+; MACROCYTOSIS 1+; OVALOCYTE 1+; TEAR DROP CELLS 1+
[2022-06-16] MEDS ORDERED: ARTIFICIAL TEARS (POLYVINYL ALCOHOL) OPTH DROPS OU PRN (15:28)
[2022-06-16] MEDS ORDERED: MAGNESIUM SULF 50% (8.12 MEQ/2 ML-1 GM VIAL) IVPB ONE (16:48)
[2022-06-16] MEDS: WATER IVPB SCH (19:10)
[2022-06-16] MEDS: GANCICLOVIR IVPB SCH (19:10)
[2022-06-16] MEDS: DEXTROSE 5% IVPB SCH (19:10)
[2022-06-16] MEDS: CARVEDILOL 6.25 MG TABLET (FP) PO SCH (21:12)
[2022-06-16] MEDS: ATORVASTATIN CA 40 MG TABLET (FP) PO SCH (21:12)
[2022-06-16 21:46] LABS: HEMATOCRIT 30.2 % (32.4-45.2); HEMOGLOBIN 9.4 GM/dL (10.7-15.3); MCH 24.2 pg (25.7-33.7); MEAN CELL VOLUME 78.1 fl (80-96); MEAN PLT VOLUME 7.4 fl (7.5-11.1); PLATELET COUNT 229 10^3/uL (134-434); RBC 3.87 M/mm3 (3.60-5.2); WHITE BLOOD COUNT 5.6 K/mm3 (4.0-10.0)
[2022-06-16 21:55] LABS: INR 0.97 (0.83-1.09); PROTHROMBIN TIME (PATIENT) 11.2 SEC (9.7-13.0)
[2022-06-16 21:58] LABS: ACTIVATED PTT 23.2 SECONDS (25.2-36.5)
[2022-06-16] MEDS: KCL 10 MEQ IVPB 10 MEQ/100 ML INFUS.BAG IVPB SCH ×3 (22:06→23:40)
[2022-06-17] MEDS: HEPARIN - 25,000 UNIT in SODIUM CHLORIDE 495 ML IV SCH ×2 (00:48→15:06)
[2022-06-17] MEDS: KCL 10 MEQ IVPB 10 MEQ/100 ML INFUS.BAG IVPB SCH ×4 (01:36→02:59)
[2022-06-17] MEDS: DEXTROSE 5%-NORMAL SALINE 1,000 ML IV SCH (03:18)
[2022-06-17] MEDS: PIPERACILLIN/TAZOB 3.375 GM 3.375 GM in DEXTROSE 5%-WATER - 50 ML IVPB SCH ×4 (03:19→22:03)
[2022-06-17 07:58] LABS: HEMATOCRIT 28.6 % (32.4-45.2); MCH 24.4 pg (25.7-33.7); MCHC 31.5 g/dl (32.0-36.0); MEAN CELL VOLUME 77.4 fl (80-96); MEAN PLT VOLUME 7.2 fl (7.5-11.1); PLATELET COUNT 219 10^3/uL (134-434); RBC 3.69 M/mm3 (3.60-5.2); RDW 20.2 % (11.6-15.6); WHITE BLOOD COUNT 3.9 K/mm3 (4.0-10.0)
[2022-06-17 08:41] LABS: ANISOCYTOSIS 3+; MACROCYTOSIS 0; OVALOCYTE 2+
[2022-06-17 09:44] LABS: ALBUMIN 2.5 g/dl (3.4-5.0); BILIRUBIN,TOTAL 1.7 mg/dL (0.2-1); BLOOD UREA NITROGEN 23.4 mg/dL (7-18); CALCIUM 8.2 mg/dL (8.5-10.1); CREATININE 1.6 mg/dL (0.55-1.3); TOT PROT 4.7 g/dl (6.4-8.2)
[2022-06-17] MEDS: CARVEDILOL 6.25 MG TABLET (FP) PO SCH ×2 (10:06→22:04)
[2022-06-17] MEDS: ALLOPURINOL 100 MG TABLET (FP) PO SCH (10:06)
[2022-06-17] MEDS: LOSARTAN POTASSIUM 50 MG TABLET PO SCH (10:06)
[2022-06-17] MEDS: PANTOPRAZOLE SODIUM 40 MG VIAL IVPUSH SCH ×2 (10:06→22:04)
[2022-06-17] MEDS ORDERED: MAGNESIUM SULF 50% (8.12 MEQ/2 ML-1 GM VIAL) IVPB ONE (11:05)
[2022-06-17] MEDS ORDERED: LACTATED RINGERS SOLUTION 1000 ML INFUS.BAG IV ONE (16:47)
[2022-06-17] MEDS: WATER IVPB SCH (18:21)
[2022-06-17] MEDS: DEXTROSE 5% IVPB SCH (18:21)
[2022-06-17] MEDS: GANCICLOVIR IVPB SCH (18:21)
[2022-06-17] MEDS: ATORVASTATIN CA 40 MG TABLET (FP) PO SCH (22:04)
[2022-06-18] MEDS: DEXTROSE 5%-NORMAL SALINE 1,000 ML IV SCH (01:45)
[2022-06-18] MEDS: PIPERACILLIN/TAZOB 3.375 GM 3.375 GM in DEXTROSE 5%-WATER - 50 ML IVPB SCH ×3 (07:50→22:07)
[2022-06-18] MEDS: CARVEDILOL 6.25 MG TABLET (FP) PO SCH ×2 (10:03→22:07)
[2022-06-18] MEDS: PANTOPRAZOLE SODIUM 40 MG VIAL IVPUSH SCH (10:03)
[2022-06-18] MEDS: LOSARTAN POTASSIUM 50 MG TABLET PO SCH (10:03)
[2022-06-18] MEDS: predniSONE 5 MG TABLET (UD) PO SCH (10:03)
[2022-06-18] MEDS: ALLOPURINOL 100 MG TABLET (FP) PO SCH (10:03)
[2022-06-18 10:14] LABS: HEMOGLOBIN 8.8 GM/dL (10.7-15.3); MCH 24.7 pg (25.7-33.7); MCHC 31.6 g/dl (32.0-36.0); MEAN CELL VOLUME 78.2 fl (80-96); MEAN PLT VOLUME 7.2 fl (7.5-11.1); PLATELET COUNT 239 10^3/uL (134-434); RBC 3.58 M/mm3 (3.60-5.2); RDW 20.4 % (11.6-15.6); WHITE BLOOD COUNT 4.9 K/mm3 (4.0-10.0)
[2022-06-18 10:40] LABS: CALCIUM 8.2 mg/dL (8.5-10.1)
[2022-06-18 10:41] LABS: ALBUMIN 2.5 g/dl (3.4-5.0); BLOOD UREA NITROGEN 19.7 mg/dL (7-18); MAGNESIUM 2.4 mg/dL (1.8-2.4)
[2022-06-18 10:44] LABS: CREATININE 1.8 mg/dL (0.55-1.3); PHOSPHOROUS 2.9 mg/dL (2.5-4.9)
[2022-06-18 10:45] LABS: TOT PROT 4.8 g/dl (6.4-8.2)
[2022-06-18 10:46] LABS: BILIRUBIN,TOTAL 1.1 mg/dL (0.2-1)
[2022-06-18 10:57] LABS: ANISOCYTOSIS 3+; MACROCYTOSIS 0; OVALOCYTE 2+; TEAR DROP CELLS 1+
[2022-06-18] MEDS ORDERED: POTASSIUM CHLORIDE TABS 20 MEQ TABLET.ER (FP) PO ONE ×2 (13:30→17:06)
[2022-06-18] MEDS: ZINC OXIDE 20% TOPICAL OINTMENT 30 GM TUBE TP SCH ×2 (14:49→22:07)
[2022-06-18] MEDS: HEPARIN - 25,000 UNIT in SODIUM CHLORIDE 495 ML IV SCH (15:29)
[2022-06-18] MEDS: DEXTROSE 5% IVPB SCH (18:31)
[2022-06-18] MEDS: WATER IVPB SCH (18:31)
[2022-06-18] MEDS: GANCICLOVIR IVPB SCH (18:31)
[2022-06-18] MEDS: ATORVASTATIN CA 40 MG TABLET (FP) PO SCH (22:07)
[2022-06-19] MEDS: PIPERACILLIN/TAZOB 3.375 GM 3.375 GM in DEXTROSE 5%-WATER - 50 ML IVPB SCH ×3 (04:00→20:17)
[2022-06-19] MEDS: ALLOPURINOL 100 MG TABLET (FP) PO SCH (10:20)
[2022-06-19] MEDS: ZINC OXIDE 20% TOPICAL OINTMENT 30 GM TUBE TP SCH ×2 (10:20→22:11)
[2022-06-19] MEDS: LOSARTAN POTASSIUM 50 MG TABLET PO SCH (10:20)
[2022-06-19] MEDS: CARVEDILOL 6.25 MG TABLET (FP) PO SCH ×2 (10:20→22:12)
[2022-06-19] MEDS: predniSONE 5 MG TABLET (UD) PO SCH (10:20)
[2022-06-19] MEDS: PANTOPRAZOLE SOD 40 MG SUSPENSION PACKET PO SCH (10:20)
[2022-06-19 11:51] LABS: HEMATOCRIT 30.4 % (32.4-45.2); HEMOGLOBIN 9.5 GM/dL (10.7-15.3); MCH 24.8 pg (25.7-33.7); MCHC 31.3 g/dl (32.0-36.0); MEAN CELL VOLUME 79.3 fl (80-96); MEAN PLT VOLUME 7.4 fl (7.5-11.1); PLATELET COUNT 254 10^3/uL (134-434); RBC 3.83 M/mm3 (3.60-5.2); RDW 20.4 % (11.6-15.6); RETICULOCYTES 3.42 % (0.5-1.5); WHITE BLOOD COUNT 5.5 K/mm3 (4.0-10.0)
[2022-06-19 11:55] LABS: INR 0.97 (0.83-1.09); PROTHROMBIN TIME (PATIENT) 11.2 SEC (9.7-13.0)
[2022-06-19 11:58] LABS: ACTIVATED PTT 66.3 SECONDS (25.2-36.5)
[2022-06-19 12:31] LABS: ALBUMIN 2.6 g/dl (3.4-5.0); BILIRUBIN,TOTAL 1.1 mg/dL (0.2-1); BLOOD UREA NITROGEN 19.5 mg/dL (7-18); CALCIUM 8.7 mg/dL (8.5-10.1); CREATININE 1.9 mg/dL (0.55-1.3); MAGNESIUM 1.8 mg/dL (1.8-2.4); PHOSPHOROUS 2.7 mg/dL (2.5-4.9); TOT PROT 5.3 g/dl (6.4-8.2)
[2022-06-19 13:21] LABS: ANISOCYTOSIS 3+; MACROCYTOSIS 0; OVALOCYTE 2+
[2022-06-19 17:08] LABS: HEMATOCRIT 29.1 % (32.4-45.2); HEMOGLOBIN 9.1 GM/dL (10.7-15.3); MCH 24.3 pg (25.7-33.7); MCHC 31.2 g/dl (32.0-36.0); MEAN CELL VOLUME 78.1 fl (80-96); MEAN PLT VOLUME 7.1 fl (7.5-11.1); PLATELET COUNT 247 10^3/uL (134-434); RBC 3.73 M/mm3 (3.60-5.2); RDW 20.2 % (11.6-15.6); WHITE BLOOD COUNT 5.8 K/mm3 (4.0-10.0)
[2022-06-19] MEDS: GANCICLOVIR IVPB SCH (18:10)
[2022-06-19] MEDS: DEXTROSE 5% IVPB SCH (18:10)
[2022-06-19] MEDS: WATER IVPB SCH (18:10)
[2022-06-19 19:46] LABS: ANISOCYTOSIS 1+; MACROCYTOSIS 0; OVALOCYTE 1+; TEAR DROP CELLS 1+
[2022-06-19] MEDS: SODIUM CHLORIDE 0.45% 1,000 ML IV SCH (20:17)
[2022-06-19] MEDS: ATORVASTATIN CA 40 MG TABLET (FP) PO SCH (22:11)
[2022-06-20] MEDS: PIPERACILLIN/TAZOB 3.375 GM 3.375 GM in DEXTROSE 5%-WATER - 50 ML IVPB SCH ×3 (06:25→20:51)
[2022-06-20] MEDS: ZINC OXIDE 20% TOPICAL OINTMENT 30 GM TUBE TP SCH ×2 (08:00→22:00)
[2022-06-20] MEDS: ALLOPURINOL 100 MG TABLET (FP) PO SCH (09:26)
[2022-06-20] MEDS: PANTOPRAZOLE SOD 40 MG SUSPENSION PACKET PO SCH (09:27)
[2022-06-20] MEDS: CARVEDILOL 6.25 MG TABLET (FP) PO SCH ×2 (09:27→21:00)
[2022-06-20] MEDS: LOSARTAN POTASSIUM 50 MG TABLET PO SCH (09:27)
[2022-06-20] MEDS: predniSONE 5 MG TABLET (UD) PO SCH (09:28)
[2022-06-20] MEDS: SODIUM CHLORIDE 0.45% 1,000 ML IV SCH (09:30)
[2022-06-20 10:44] LABS: HEMATOCRIT 27.8 % (32.4-45.2); HEMOGLOBIN 8.8 GM/dL (10.7-15.3); MCH 24.8 pg (25.7-33.7); MCHC 31.7 g/dl (32.0-36.0); MEAN CELL VOLUME 78.1 fl (80-96); MEAN PLT VOLUME 7.4 fl (7.5-11.1); PLATELET COUNT 251 10^3/uL (134-434); RBC 3.56 M/mm3 (3.60-5.2); RDW 20.1 % (11.6-15.6); WHITE BLOOD COUNT 5.3 K/mm3 (4.0-10.0)
[2022-06-20 10:47] LABS: INR 0.95 (0.83-1.09); PROTHROMBIN TIME (PATIENT) 10.9 SEC (9.7-13.0)
[2022-06-20 10:49] LABS: CALCIUM 8.6 mg/dL (8.5-10.1)
[2022-06-20 10:50] LABS: ALBUMIN 2.5 g/dl (3.4-5.0); BLOOD UREA NITROGEN 14.6 mg/dL (7-18); MAGNESIUM 1.5 mg/dL (1.8-2.4)
[2022-06-20 10:53] LABS: CREATININE 1.7 mg/dL (0.55-1.3); PHOSPHOROUS 3.3 mg/dL (2.5-4.9)
[2022-06-20 10:54] LABS: BILIRUBIN,TOTAL 1.2 mg/dL (0.2-1)
[2022-06-20] MEDS ORDERED: IRON SUCROSE INJECTION 200 MG in SODIUM CHLORIDE 90 ML IVPB ONE (11:19)
[2022-06-20 12:22] LABS: ANISOCYTOSIS 0; MACROCYTOSIS 0
[2022-06-20] MEDS: GANCICLOVIR IVPB SCH (17:06)
[2022-06-20] MEDS: DEXTROSE 5% IVPB SCH (17:06)
[2022-06-20] MEDS: WATER IVPB SCH (17:06)
[2022-06-20] MEDS: ATORVASTATIN CA 40 MG TABLET (FP) PO SCH (21:00)
[2022-06-20] MEDS: ENOXAPARIN NA (PORCINE) 80 MG/0.8 ML DISP.SYRIN SQ SCH (22:00)
[2022-06-21] MEDS: PIPERACILLIN/TAZOB 3.375 GM 3.375 GM in DEXTROSE 5%-WATER - 50 ML IVPB SCH ×3 (05:31→23:08)
[2022-06-21] MEDS: ENOXAPARIN NA (PORCINE) 80 MG/0.8 ML DISP.SYRIN SQ SCH (10:06)
[2022-06-21 10:42] LABS: HEMATOCRIT 27.5 % (32.4-45.2); HEMOGLOBIN 8.8 GM/dL (10.7-15.3); MCHC 32.1 g/dl (32.0-36.0); MEAN CELL VOLUME 77.8 fl (80-96); MEAN PLT VOLUME 8.2 fl (7.5-11.1); PLATELET COUNT 233 10^3/uL (134-434); RBC 3.54 M/mm3 (3.60-5.2); RDW 19.7 % (11.6-15.6); WHITE BLOOD COUNT 5.7 K/mm3 (4.0-10.0)
[2022-06-21] MEDS: ALLOPURINOL 100 MG TABLET (FP) PO SCH (10:55)
[2022-06-21] MEDS: LOSARTAN POTASSIUM 50 MG TABLET PO SCH (10:55)
[2022-06-21] MEDS: predniSONE 5 MG TABLET (UD) PO SCH (10:55)
[2022-06-21] MEDS: CARVEDILOL 6.25 MG TABLET (FP) PO SCH ×2 (10:56→23:09)
[2022-06-21] MEDS: PANTOPRAZOLE SOD 40 MG SUSPENSION PACKET PO SCH (10:56)
[2022-06-21] MEDS: ZINC OXIDE 20% TOPICAL OINTMENT 30 GM TUBE TP SCH ×2 (11:02→23:17)
[2022-06-21 11:05] LABS: CALCIUM 8.7 mg/dL (8.5-10.1)
[2022-06-21 11:06] LABS: ALBUMIN 2.5 g/dl (3.4-5.0); BLOOD UREA NITROGEN 16.6 mg/dL (7-18); MAGNESIUM 1.5 mg/dL (1.8-2.4)
[2022-06-21 11:09] LABS: PHOSPHOROUS 3.8 mg/dL (2.5-4.9)
[2022-06-21 11:10] LABS: BILIRUBIN,TOTAL 1.4 mg/dL (0.2-1)
[2022-06-21 11:11] LABS: CREATININE 1.9 mg/dL (0.55-1.3); TOT PROT 5.1 g/dl (6.4-8.2)
[2022-06-21 12:45] LABS: ANISOCYTOSIS 3+; MACROCYTOSIS 0; TEAR DROP CELLS 1+
[2022-06-21] MEDS: DEXTROSE 5% IVPB SCH (17:30)
[2022-06-21] MEDS: GANCICLOVIR IVPB SCH (17:30)
[2022-06-21] MEDS: WATER IVPB SCH (17:30)
[2022-06-21] MEDS: ATORVASTATIN CA 40 MG TABLET (FP) PO SCH (23:09)
[2022-06-22] MEDS: ENOXAPARIN NA (PORCINE) 80 MG/0.8 ML DISP.SYRIN SQ SCH ×2 (00:27→10:43)
[2022-06-22] MEDS: PIPERACILLIN/TAZOB 3.375 GM 3.375 GM in DEXTROSE 5%-WATER - 50 ML IVPB SCH ×3 (05:12→21:55)
[2022-06-22 10:20] LABS: HEMATOCRIT 31.2 % (32.4-45.2); HEMOGLOBIN 9.6 GM/dL (10.7-15.3); MCH 24.3 pg (25.7-33.7); MCHC 30.9 g/dl (32.0-36.0); MEAN CELL VOLUME 78.5 fl (80-96); MEAN PLT VOLUME 7.5 fl (7.5-11.1); PLATELET COUNT 299 10^3/uL (134-434); RBC 3.97 M/mm3 (3.60-5.2); RDW 19.8 % (11.6-15.6); WHITE BLOOD COUNT 8.9 K/mm3 (4.0-10.0)
[2022-06-22 10:21] LABS: INR 1.06 (0.83-1.09); PROTHROMBIN TIME (PATIENT) 12.2 SEC (9.7-13.0)
[2022-06-22 10:36] LABS: BLOOD UREA NITROGEN 22.9 mg/dL (7-18)
[2022-06-22] MEDS: ALLOPURINOL 100 MG TABLET (FP) PO SCH (10:38)
[2022-06-22] MEDS: predniSONE 5 MG TABLET (UD) PO SCH (10:38)
[2022-06-22] MEDS: LOSARTAN POTASSIUM 50 MG TABLET PO SCH (10:38)
[2022-06-22] MEDS: CARVEDILOL 6.25 MG TABLET (FP) PO SCH ×2 (10:38→21:56)
[2022-06-22 10:39] LABS: CALCIUM 9.2 mg/dL (8.5-10.1); CREATININE 2.2 mg/dL (0.55-1.3)
[2022-06-22] MEDS: ZINC OXIDE 20% TOPICAL OINTMENT 30 GM TUBE TP SCH ×2 (10:39→21:57)
[2022-06-22] MEDS: PANTOPRAZOLE SOD 40 MG SUSPENSION PACKET PO SCH (10:39)
[2022-06-22 11:34] LABS: ANISOCYTOSIS 3+; MACROCYTOSIS 0; TEAR DROP CELLS 1+
[2022-06-22] MEDS ORDERED: FENTANYL CITRATE/PF 50 MCG/ML VIAL ONE (11:51)
[2022-06-22] MEDS ORDERED: predniSONE 1 MG TABLET (FP) PO SCH (12:57)
[2022-06-22] MEDS ORDERED: MAGNESIUM SULF 50% (8.12 MEQ/2 ML-1 GM VIAL) IVPB ONE (13:58)
[2022-06-22 14:10] LABS: MAGNESIUM 1.8 mg/dL (1.8-2.4)
[2022-06-22 14:54] VITALS: RESP 18
[2022-06-22] MEDS: WATER IVPB SCH (17:34)
[2022-06-22] MEDS: GANCICLOVIR IVPB SCH (17:34)
[2022-06-22] MEDS: DEXTROSE 5% IVPB SCH (17:34)
[2022-06-22] MEDS ORDERED: NIFEdipine E.R. 30 MG TABLET PO ONE (18:14)
[2022-06-22] MEDS: sitaGLIPtin PHOSPHATE 50 MG TABLET PO SCH (18:44)
[2022-06-22] MEDS: ATORVASTATIN CA 40 MG TABLET (FP) PO SCH (21:55)
[2022-06-23] MEDS: PIPERACILLIN/TAZOB 3.375 GM 3.375 GM in DEXTROSE 5%-WATER - 50 ML IVPB SCH ×2 (05:30→13:02)
[2022-06-23] MEDS: sitaGLIPtin PHOSPHATE 50 MG TABLET PO SCH (06:40)
[2022-06-23] MEDS: ALLOPURINOL 100 MG TABLET (FP) PO SCH (09:38)
[2022-06-23] MEDS: LOSARTAN POTASSIUM 50 MG TABLET PO SCH (09:38)
[2022-06-23] MEDS: CARVEDILOL 6.25 MG TABLET (FP) PO SCH (09:38)
[2022-06-23] MEDS: PANTOPRAZOLE SOD 40 MG SUSPENSION PACKET PO SCH (09:38)
[2022-06-23] MEDS: ZINC OXIDE 20% TOPICAL OINTMENT 30 GM TUBE TP SCH (09:38)
[2022-06-23] MEDS ORDERED: NIFEdipine E.R 60 MG TABLET PO SCH (10:00)
[2022-06-23 10:46] LABS: HEMATOCRIT 31.7 % (32.4-45.2); HEMOGLOBIN 9.7 GM/dL (10.7-15.3); MCH 24.3 pg (25.7-33.7); MCHC 30.5 g/dl (32.0-36.0); MEAN CELL VOLUME 79.6 fl (80-96); MEAN PLT VOLUME 7.2 fl (7.5-11.1); PLATELET COUNT 276 10^3/uL (134-434); RBC 3.98 M/mm3 (3.60-5.2); RDW 20.1 % (11.6-15.6)
[2022-06-23 11:27] LABS: BLOOD UREA NITROGEN 24.3 mg/dL (7-18)
[2022-06-23 11:28] LABS: ALBUMIN 2.8 g/dl (3.4-5.0)
[2022-06-23 11:30] LABS: CREATININE 1.9 mg/dL (0.55-1.3); PHOSPHOROUS 4.2 mg/dL (2.5-4.9)
[2022-06-23 11:31] LABS: TOT PROT 5.7 g/dl (6.4-8.2)
[2022-06-23 13:40] VITALS: BP 119/67; PULSE 66; TEMP 99.4
[2022-06-23] MEDS: DEXTROSE 5% IVPB SCH (17:24)
[2022-06-23] MEDS: WATER IVPB SCH (17:24)
[2022-06-23] MEDS: GANCICLOVIR IVPB SCH (17:24)
== END 2022-06-23 17:22 | disposition home or self-care (01) | DRG 378 ==
LOC: JER 16:41 → JERBED 23:24 → OBSVTOIN 06-15 04:49 → J5S 06-15 17:34
PROVIDERS: ADMIT Internal Medicine; ATTEND Internal Medicine
PROC: 0W3P8ZZ Control Bleeding in Gastrointestinal Tract, Via Natural or Artificial Opening Endoscopic (ICD-10-PCS; principal; 2022-06-16 12:00)
PROC: 06H03DZ Insertion of Intraluminal Device into Inferior Vena Cava, Percutaneous Approach (ICD-10-PCS; 2022-06-22)
DX: K55.21 Angiodysplasia of colon with hemorrhage (principal); B25.8 Other cytomegaloviral diseases; D84.9 Immunodeficiency, unspecified; K57.32 Diverticulitis of large intestine without perforation or abscess without bleeding; I82.402 Acute embolism and thrombosis of unspecified deep veins of left lower extremity; E87.0 Hyperosmolality and hypernatremia; N17.9 Acute kidney failure, unspecified; K62.5 Hemorrhage of anus and rectum; M32.9 Systemic lupus erythematosus, unspecified; N18.30 Chronic kidney disease, stage 3 unspecified; N26.9 Renal sclerosis, unspecified; K29.80 Duodenitis without bleeding; N76.6 Ulceration of vulva; H02.403 Unspecified ptosis of bilateral eyelids; A60.04 Herpesviral vulvovaginitis; E78.5 Hyperlipidemia, unspecified; E11.9 Type 2 diabetes mellitus without complications; K64.8 Other hemorrhoids
CPT/HCPCS: 36415; 37191; 70480-TC; 74176-TC; 80048; 80053; 81003; 82272; 82728; 82962; 83036; 83540; 83550; 83735; 84100; 84439; 84443; 85025; 85027; 85045; 85610; 85730; 86140; 86850; 86900; 86901; 87040; 87086; 87389; 87497; 87529; 87536; 93005; 93010; 93970-TC; 97116-GP; 97161-GP; 99285-25; C9803-CS; G0378; J1644; J1756; U0003; U0005